=== PATIENT | female | born 1955 | race Caucasian/White ===

== ENCOUNTER → 2023-08-06 16:38 | Outpatient (REF) | payer MEDICARE, OTHER, SELFPAY | LOC: HWRAD 16:38 | PROVIDERS: ATTENDING PHYSICIAN Nurse Practitioner Adult Health | DX: R10.9 Unspecified abdominal pain (principal) | CPT/HCPCS: 74018 ==

== ENCOUNTER 2023-08-10 07:37 | Observation (INO) | payer MEDICARE, OTHER, SELFPAY ==
[2023-08-09 23:07] VITALS: BP 167/87
[2023-08-10] VITALS (9 sets, daily range): BP systolic 110–153; BP diastolic 55–92; BMI 16.1; BMI 16.4
[2023-08-10 00:56] LABS: % Basophils 0.3 % (0-2); % Immature Granulocytes 0.5 % (0-0.5); % Lymphocytes 12.4 % (20.5-51.1); % Monocytes 4.2 % (1.7-9.3); % Neutrophils 81.6 % (42.2-75.2); Absolute Basophils 0.1 10^3/uL (0-0.2); Absolute Eosinophils 0.2 10^3/uL (0-0.7); Absolute Immature Granulocytes 0.1 10^3/uL (0-0.05); Absolute Lymphocytes 2.2 10^3/uL (1.2-3.4); Absolute Monocytes 0.7 10^3/uL (0.1-0.6); Absolute Neutrophils 14.3 10^3/uL (1.4-6.5); Hemoglobin 13.7 g/dL (12.0-16.0); Mean Corp Hgb Conc. 32.6 g/dL (33.0-37.0); Mean Corpuscular Volume 92.1 fL (81.0-99.0); Mean Platelet Volume 8.9 fL (7.4-10.4); Nucleated Red Blood Cells % 0 %; Platelet Count 344 10^3/uL (130-400); Red Blood Cell Count 4.56 10^6/uL (4.20-5.40); Red Cell Dist. Width 13.1 % (11.5-14.5); White Blood Cell Count 17.5 10^3/uL (4.8-10.8)
[2023-08-10 00:58] LABS: Urine Albumin Trace (Neg - Trace); Urine Bilirubin 1+ (Negative); Urine Character Clear (Clear); Urine Color Yellow; Urine Glucose Negative (Negative); Urine Ketone 1+ (Negative); Urine Leukocyte Trace (Negative); Urine Nitrite Negative (Negative); Urine Occult Blood 1+ (Negative); Urine Specific Gravity 1.025 (<1.030); Urine Urobilinogen Negative (Neg - 1+)
[2023-08-10 01:10] LABS: ALT (SGPT) 17 U/L (0-35); AST (SGOT) 34 U/L (14-36); Albumin 4.3 g/dl (3.5-5.0); Alkaline Phosphatase 71 U/L (38-126); Blood Urea Nitrogen 13 mg/dl (7-17); Carbon Dioxide 28 mmol/L (22-30); Chloride 92 mmol/L (98-107); Estimated Creatinine Clearance 56 ml/min; Glucose 109 mg/dl (70-99); Lipase 109 U/L (23-300); Potassium 4.4 mmol/L (3.5-5.1); Sodium 127 mmol/L (135-145); Total Bilirubin 0.5 mg/dl (0.2-1.3); Total Protein 7.5 g/dl (6.3-8.2); eGFR > 60.00
[2023-08-10 01:30] LABS: Urine White Cell 0-2 /HPF (0-5)
--- NOTE | 2023-08-10 01:57 | ED.GENMED ---
History of Present Illness
<GREGG Dias - Last Filed: 08/11/23 17:59>
General
Chief Complaint: Abdominal Pain
Source: patient
Exam Limitations: none
Time Seen by Provider: 08/10/23 00:51
Travel History
Have you had any contact with someone who has COVID-19?: No
Do you have any symptoms of coronavirus? Fever > 100 degrees, chills, cough, shortness of breath, sore throat, loss of taste or smell, muscle aches, or headache?: No
History of Present Illness
History of Present Illness:
This is a 68 year old female that comes in by ambulance with c/o left sided abd pain. States that on July 18 she had severe abd pain. States that she was nauseated and sweaty. States that she couldn't get comfortable. State that she did vomit and
after she vomited she felt better. Then this past week she again started with abd pain on the left side and this lasted for 2 hours and she felt bloated. States that it went away. Then on Friday she was up all night with pain. Friday she went to
see the PCP and they did a urine and there was blood in the urine. States that she was sent for an X-ray and she was told that this was normal. States that she was told that she may have passed a kidney stone. ON Friday she called the PCP again as
she was still having pain but they decided to wait till after the weekend. Then Friday the pain got so bad that she just didn't know what to do. State that she has no appetite but she is having normal BM's. State that she is nauseated. Denies any
fever, chills, chest pain, SOB, vomiting, diarrhea, headache, dizziness, urinary burning.
Past History
<GREGG Dias - Last Filed: 08/11/23 17:59>
Past History
ED Past Medical History: HTN, Hypercholesterolemia, GA, Hypothyroidism and Other (Ulcer, PNA, Jose Manuel's thyroiditis, Anemia, Bronchiectasis )
ED Past Surgical History: Gynecological (Hysterectomy), Orthopedic (Left knee tissue overgrowth, Left wrist surgery) and Tonsilectomy
Social History
Tobacco: Former smoker
Alcohol: None
Personal:
Living: with family
Family History
Family History: Negative Diabetes, Hypertension or CAD
Review of Systems
<GREGG Dias - Last Filed: 08/11/23 17:59>
Review of Systems
All Other Systems: ROS reviewed and negative except as documented in HPI and ROS
Constitutional: Reports no symptoms; Denies fever or chills
EENT: Reports no symptoms
Respiratory: Reports no symptoms; Denies cough or trouble breathing
Cardiac: Reports no symptoms; Denies chest pain
ABD/GI: Reports abdominal pain and nausea; Denies vomiting or diarrhea
: Reports no symptoms; Denies dysuria, frequency or urgency
Musculoskeletal: Reports no symptoms
Skin: Reports no symptoms
Neurological: Reports no symptoms; Denies dizzy or headache
Psychiatric: Reports no symptoms
Phy Exam
<GREGG Dias - Last Filed: 08/11/23 17:59>
General Physical Exam
General Presentation: no apparent distress
General age: appears stated age
General Skin: warm and dry
General Habitus: elderly
General Mental: alert
General Hydration: appears well hydrated
ENT Exam
ENT Exam: TM's normal, pharynx normal and neck supple
Eye Exam
Eye Exam: EOMI
Cardiovascular Exam
Cardiovascular Exam: regular rate/rhythm, no edema, no murmur and normal peripheral pulses
Pulmonary Exam
Pulmonary Exam: lungs clear, no respiratory distress, no rales, chest non tender, no crackles, no rhonchi, no wheezing and no cough
Gastrointestinal Exam
Gastrointestinal Exam: normal bowel sounds, soft, no organomegaly, no pulsatile mass, non distended and tender (Left lower abd tenderness with palpation)
Musculoskeletal Exam
Musculoskeletal Exam: full ROM and no edema
Skin Exam
Skin Exam: normal color, warm/dry, no rash and no petechia
Psychiatric Exam
Psychiatric Exam: normal mood/affect
Course
<GREGG Dias - Last Filed: 08/11/23 17:59>
Orders/Labs/Results
Orders:
Orders
08/09/23 23:13
IV Insert/Care/Rem.- Treatment PRN
Complete Blood Count/With Diff Urgent
Comprehensive Metabolic Panel Urgent
Lipase Urgent
Urinalysis Reflex To Culture Urgent
Date Specimen was Collected: 08/09/23
Time Specimen was Collected: 23:14
08/10/23 00:49
Urine Microscopic Reflex Cult Urgent
08/10/23 01:56
CT Abd/pel W Iv And Oral Contr Urgent
Comment:
Reason For Exam: Left sided abd pain
0.9% Sodium Chloride 1000 ml [Nss] 1,000 ml IV BOLUS
Iohexol [Omnipaque] See Protocol PO NOW STA
08/10/23 02:03
Ondansetron Injectable [Zofran] 4 mg IV NOW STA
08/10/23 05:38
Chest [CR Chest - 2 Views ] Urgent
Comment:
Reason For Exam: cp
08/10/23 05:48
Piperacillin/Tazo 3.375 Gram [Zosyn] 3.375 gram in 50 ml IV NOW
08/10/23 Breakfast
Regular
At Your Request: Full Participation
Does patient need a safe tray?: No
08/10/23 06:51
Admit/Transfer Patient As Directed
Co-Sign Provider:
Level of Care: Observation services
Assign to:: Medical/Surgical
Physician / Group: hospitalist
Diagnosis: symptomatic liver cyst, abdominal pain
08/10/23 06:52
Code Status As Directed
Resuscitation Status: Full Code
08/10/23 07:40
HYDROmorphone [Dilaudid] 0.5 mg IV Q4HPRN PRN
08/10/23 07:45
Oxycodone [Roxicodone] 5 mg PO Q4HPRN PRN
08/10/23 11:03
Acetaminophen [Tylenol] 650 mg PO Q4HPRN PRN
Bisacodyl [Dulcolax] 10 mg RECTAL [id number] PRN
Cholecalciferol (Vitamin D3) [VITAMIN D3 (cholecalciferol)] 25 mcg PO DAILY
Docusate W/Senna [Senokot-S] 1 tablet PO BIDPRN PRN
Liothyronine [Cytomel] 5 microgram PO DAILY
Metoprolol Xl [Toprol Xl] 50 mg PO BID
Ondansetron Injectable [Zofran] 4 mg IV Q6HPRN PRN
Polyethylene Glycol Powder [Miralax] 17 grams PO DAILYPRN PRN
08/10/23 11:03
Consult Notification Routine
Specialty to Notify: Gastroenterology
Date consulting provider notified: 08/10/23
Time consulting provider notified: 14:36
Notified:: Provider
GASTROINTESTINAL CONSULT Routine
Consulting Provider: Davie Chinchilla
Was physician already notified: No
Reason for consult: abdominal pain c/w symptomatic liver cyst,
Activity As Directed
Activity Level: With Assistance
Vital Signs As Directed
Frequency: Per unit guidelines
DX Deep Vein Thrombosis Video Routine
08/10/23 18:00
Enoxaparin Sodium [Lovenox] 40 mg SC QPM
08/10/23 18:23
Sputum Culture [Respiratory Culture/Gram Stain] Urgent
JESUS MANUEL Source: Sputum
Specimen Description:
Date Specimen was Collected: 08/10/23
Time Specimen was Collected: 18:20
08/11/23 06:00
Levothyroxine [Synthroid] 100 mcg PO DAILY @ 0600
08/11/23 06:56
Basic Metabolic Panel IN AM
Complete Blood Count/No Diff IN AM
Abnormal Lab Results
08/10/23
00:49
WBC 17.5 H 10^3/uL
(4.8-10.8)
MCHC 32.6 L g/dL
(33.0-37.0)
Abs Immat Gran (auto) 0.1 H 10^3/uL
(0-0.05)
Absolute Neuts (auto) 14.3 H 10^3/uL
(1.4-6.5)
Absolute Monos (auto) 0.7 H 10^3/uL
(0.1-0.6)
Neutrophils % 81.6 H %
(42.2-75.2)
Lymphocytes % 12.4 L %
(20.5-51.1)
Sodium 127 L mmol/L
(135-145)
Chloride 92 L mmol/L
(98-107)
Creatinine 0.5 L mg/dL
(0.6-1.0)
Glucose 109 H mg/dl
(70-99)
Urine Ketones 1+ A
(Negative)
Ur Occult Blood Reflex 1+ A
(Negative)
Urine Bilirubin 1+ A
(Negative)
Leukocyte Esterase Rfl Trace A
(Negative)
Urine RBC 7-10 A /HPF
(0-2)
08/10/23 00:49
08/10/23 00:49
Leukocytosis, Hyponatremia, Chloride low. Glucose nonfasting. Urine negative for infection, positive for blood.
Vital Signs
Initial and Last Documented VS:
Initial Vital Signs
Temp Pulse Resp BP Pulse Ox
97.6 F 68 20 167/87 96
08/09/23 23:07 08/09/23 23:07 08/09/23 23:07 08/09/23 23:07 08/09/23 23:07
Last Documented Vital Signs
Temp Pulse Resp BP Pulse Ox
98.0 F 66 18 154/87 97
08/11/23 15:00 08/11/23 15:00 08/11/23 15:00 08/11/23 15:00 08/11/23 15:00
<Kristi Barrios DO - Last Filed: 08/10/23 06:01>
Orders/Labs/Results
Orders:
Orders
08/09/23 23:13
IV Insert/Care/Rem.- Treatment PRN
Complete Blood Count/With Diff Urgent
Comprehensive Metabolic Panel Urgent
Lipase Urgent
Urinalysis Reflex To Culture Urgent
Date Specimen was Collected: 08/09/23
Time Specimen was Collected: 23:14
08/10/23 00:49
Urine Microscopic Reflex Cult Urgent
08/10/23 01:56
CT Abd/pel W Iv And Oral Contr Urgent
Comment:
Reason For Exam: Left sided abd pain
0.9% Sodium Chloride 1000 ml [Nss] 1,000 ml IV BOLUS
Iohexol [Omnipaque] See Protocol PO NOW STA
08/10/23 02:03
Ondansetron Injectable [Zofran] 4 mg IV NOW STA
08/10/23 05:38
Chest [CR Chest - 2 Views ] Urgent
Comment:
Reason For Exam: cp
08/10/23 05:48
Piperacillin/Tazo 3.375 Gram [Zosyn] 3.375 gram in 50 ml IV NOW
08/10/23 Breakfast
Regular
At Your Request: Full Participation
Does patient need a safe tray?: No
08/10/23 06:51
Admit/Transfer Patient As Directed
Co-Sign Provider:
Level of Care: Observation services
Assign to:: Medical/Surgical
Physician / Group: hospitalist
Diagnosis: symptomatic liver cyst, abdominal pain
08/10/23 06:52
Code Status As Directed
Resuscitation Status: Full Code
08/10/23 07:40
HYDROmorphone [Dilaudid] 0.5 mg IV Q4HPRN PRN
08/10/23 07:45
Oxycodone [Roxicodone] 5 mg PO Q4HPRN PRN
08/10/23 11:03
Acetaminophen [Tylenol] 650 mg PO Q4HPRN PRN
Bisacodyl [Dulcolax] 10 mg RECTAL [id number] PRN
Cholecalciferol (Vitamin D3) [VITAMIN D3 (cholecalciferol)] 25 mcg PO DAILY
Docusate W/Senna [Senokot-S] 1 tablet PO BIDPRN PRN
Liothyronine [Cytomel] 5 microgram PO DAILY
Metoprolol Xl [Toprol Xl] 50 mg PO BID
Ondansetron Injectable [Zofran] 4 mg IV Q6HPRN PRN
Polyethylene Glycol Powder [Miralax] 17 grams PO DAILYPRN PRN
08/10/23 11:03
Consult Notification Routine
Specialty to Notify: Gastroenterology
Date consulting provider notified: 08/10/23
Time consulting provider notified: 14:36
Notified:: Provider
GASTROINTESTINAL CONSULT Routine
Consulting Provider: Davie Chinchilla
Was physician already notified: No
Reason for consult: abdominal pain c/w symptomatic liver cyst,
Activity As Directed
Activity Level: With Assistance
Vital Signs As Directed
Frequency: Per unit guidelines
DX Deep Vein Thrombosis Video Routine
08/10/23 18:00
Enoxaparin Sodium [Lovenox] 40 mg SC QPM
08/10/23 18:23
Sputum Culture [Respiratory Culture/Gram Stain] Urgent
JESUS MANUEL Source: Sputum
Specimen Description:
Date Specimen was Collected: 08/10/23
Time Specimen was Collected: 18:20
08/11/23 06:00
Levothyroxine [Synthroid] 100 mcg PO DAILY @ 0600
08/11/23 06:56
Basic Metabolic Panel IN AM
Complete Blood Count/No Diff IN AM
Abnormal Lab Results
08/10/23
00:49
WBC 17.5 H 10^3/uL
(4.8-10.8)
MCHC 32.6 L g/dL
(33.0-37.0)
Abs Immat Gran (auto) 0.1 H 10^3/uL
(0-0.05)
Absolute Neuts (auto) 14.3 H 10^3/uL
(1.4-6.5)
Absolute Monos (auto) 0.7 H 10^3/uL
(0.1-0.6)
Neutrophils % 81.6 H %
(42.2-75.2)
Lymphocytes % 12.4 L %
(20.5-51.1)
Sodium 127 L mmol/L
(135-145)
Chloride 92 L mmol/L
(98-107)
Creatinine 0.5 L mg/dL
(0.6-1.0)
Glucose 109 H mg/dl
(70-99)
Urine Ketones 1+ A
(Negative)
Ur Occult Blood Reflex 1+ A
(Negative)
Urine Bilirubin 1+ A
(Negative)
Leukocyte Esterase Rfl Trace A
(Negative)
Urine RBC 7-10 A /HPF
(0-2)
08/10/23 00:49
08/10/23 00:49
Vital Signs
Initial and Last Documented VS:
Initial Vital Signs
Temp Pulse Resp BP Pulse Ox
97.6 F 68 20 167/87 96
08/09/23 23:07 08/09/23 23:07 08/09/23 23:07 08/09/23 23:07 08/09/23 23:07
Last Documented Vital Signs
Temp Pulse Resp BP Pulse Ox
98.0 F 66 18 154/87 97
08/11/23 15:00 08/11/23 15:00 08/11/23 15:00 08/11/23 15:00 08/11/23 15:00
<GREGG Dias - Last Filed: 08/11/23 17:59>
MDM/Problems Addressed
Differential Diagnosis Includes:
Diverticulitis, Renal calculus,
MDM/Problems Addressed:
This is a 68 year old female that comes in with c/o left sided abd pain. States that this started on July 18 and then went away. Then this week it returned and today the pain was worse. States that she was nauseated and did not have an appetite.
States that she did have a BM
Chronic conditions affecting care:
NA
Acute Exacerbation and/or Progression of Chronic Illness:
NA
<GREGG Dias - Last Filed: 08/11/23 17:59>
*Radiology
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 Punctate left lower pole renal calculus. ultiple hepatic cyst with a large cyst arising from the left hepatic lobe that is stable from
the previous CT urogram. Mild abdominopelvic ascites. Colonic diverticulosis. Infectious or inflammator) and other (CT cont inflammatory bronchiolitis throughout the bilateral lung bases. )
*Pulse Oximetry
Patient hypoxic: no
*EKG
Interpreted by ED Provider?: NA
Rate: EKG- N/A
*Mail Rider Interpretation
Rate: Mail Rider- N/A
*Critical Care Note
Total Time (30-74mins, 75-104mins- exclusive of procedures): Not Applicable
ED Attending Note
<GRGEG Dias - Last Filed: 08/11/23 17:59>
-
Portions of this chart may have been created with voice recognition software.� Occasional wrong word or��sound alike� substitutions may have occurred due to the inherent limitations of voice recognition software.
<Kristi Barrios DO - Last Filed: 08/10/23 06:01>
ED Attending Note
Patient seen and examined by attending physician: Yes
I performed the substantive portion of visit, reviewed & personally made and approve the management plan that is documented in note by myself or SHARON.: Yes
I performed a history and physical exam of patient and discussed management with resident, I reviewed resident's note and agree with documented findings and plan of care.: Yes
ED Attending Note:
This is a 68-year-old woman with history of hypothyroidism, hypertension, bronchiectasis, known hepatic cyst and prior history of kidney stones.
She complains of 1 week history of left upper quadrant to left mid abdominal pain, progressively worse over the past week. Evaluated by her PCP on Friday and urinalysis reportedly unremarkable.
She does note somewhat chronic mild cough which she attributes to her bronchiectasis but last night cough was productive of scantly blood-tinged sputum and again this morning after returning from CT. She has not had a fever nor chills. She admits
to nausea but no vomiting.
68-year-old woman, thin build, mildly protuberant abdomen.
Lungs with fine rales bibasilar, no respiratory distress.
Abdomen is soft with moderate tenderness left upper quadrant, left mid abdomen.
Labs are remarkable for moderately elevated white blood cell count 17.5. Patient states routine labs within the past week were unremarkable save for mild/chronic hyponatremia.
She is noted to have mild hyponatremia, similar to previous.
CAT scan shows a large cyst arising from left hepatic lobe�this corresponds with area of abdominal pain. She is also noted to have moderate ascites and bilateral lower lobe patchy opacities suspicious for pneumonia.
With increasing cough, hemoptysis there is concern for pneumonic process and significant tenderness over hepatic cyst concerning for inflamed/infected cyst.
Will initiate IV antibiotics and admit to hospitalist service.
Discharge Plan
Departure
Patient Disposition: Admit
Date of Disposition: 08/10/23
Time of Disposition: 05:44
Admit to doctor: Disha
Presentation/result/management discussed w/ accepting MD/DO: Hospitalist
Condition: Fair
Discharge Problem:
inflamed hepatic cyst, Cough with hemoptysis, Leukocytosis
Interventions
Interventions:
*Risk Screen - Suicide Last Done: 08/09/23 23:07
*General Assessment Last Done: 08/09/23 23:07
*Neglect/Abuse Screening Last Done: 08/09/23 23:07
ED- Fall Risk Assessment Last Done: 08/09/23 23:07
*ED COVID-19 Vaccine History Last Done: 08/09/23 23:07
*Nursing Disposition Last Done: 08/10/23 13:21
UQ-Crgsjf-Limcdducnf Assessment Last Done: 08/10/23 09:00
ED-Female Genitourinary Assessment Last Done: 08/10/23 09:00
Discharge Date and Time
Discharge Date/Time: 08/10/23 13:21
[2023-08-10] MEDS: NSS 1000 IV (02:04)
[2023-08-10] MEDS: OMNIPAQUE 960 ML PO (02:04)
[2023-08-10] MEDS: ZOSYN 50 IV (05:53)
--- NOTE | 2023-08-10 06:07 | HPS.HSE ---
Family Physician
-
Family Physician: Cindi Peterson
Chief Complaint
-
Abdominal pain and cough productive of scant hemoptysis
History of Present Illness
This is a 68-year-old female with past medical history significant for rheumatoid arthritis, hypertension, bronchiectasis, hyperlipidemia who presents to the emergency department with several days of intermittent left-sided abdominal pain radiating
to the groin.
Patient reports she has a prior history of nephrolithiasis. About 20 weeks ago she developed severe left-sided abdominal pain that was radiating to her groin that felt like she had a kidney stone again. She did see a physician and few days later
who did a urine test and found that she has hematuria. Symptoms was consistent with kidney stone and she was pending a imaging study. However today she reported worsening of the abdominal pain especially in association with cough that was
productive of scant hemoptysis. She denies any radiation of the pain besides going to the groin. She denies dysuria. She denies flank pain or back pain. She denies any chest pain. She does not have any shortness of breath orthopnea or PND. She
denies having fevers or chills.
Patient is known to have a rather large left about the closest which she is aware of. However is not clear that he has been any follow-up.
On arrival in the emergency department she was afebrile, blood pressure was 148/90 with a pulse of 72. Oxygen saturation was 91% on room air. UA with RBCs but otherwise unremarkable. She had WBC count of 17,000 with rest of the CBC being normal.
Chemistries were normal except for a sodium of 127 which is unchanged from prior. LFTs and lipase within normal limits. CT of the abdomen pelvis shows a rather large cystic lesion in the left hepatic lobe which is unchanged from prior. History
that abscess cannot be ruled out. She also has a moderate ascites.
Medical History
Past Medical History
Past Medical History: Reports Hypercholesterolemia and Hypothyroidism
Additional Past Medical History:
RA
Bronchiectasis
Past Surgical History: Reports None
Social History
Tobacco: Non-smoker
Alcohol: None
Drug: None
Family History
Family History: Not pertinent
Allergies / Home Medications
Allergies reflects when Allergies were last updated in Scan.
Home Medications with original date entered in Scan
Allergy/Medication List:
Allergies
Allergy/AdvReac Type Severity Reaction Status Date / Time
Antihistamines - Alkylamine Allergy Swelling Verified 11/17/20 12:46
ibuprofen Allergy hx of Verified 11/17/20 12:46
ulcers
Home Medications
cholecalciferol (vitamin D3) 25 mcg (1,000 unit) tablet 1,000 units PO DAILY
levothyroxine 100 mcg tablet 100 mcg PO daily
liothyronine 5 mcg po daily
metoprolol succinate 50 mg tablet PO BID
Review of Systems
-
Constitutional: Reports No Symptoms
EENT: Reports No Symptoms
Respiratory: Reports Cough and Hemoptysis
Cardiac: Reports No Symptoms
Abdomen/GI: Reports Abdominal Pain
: Reports No Symptoms
Musculoskeletal: Reports No Symptoms
Skin: Reports No Symptoms
Neurological: Reports No Symptoms
Endocrine: Reports No Symptoms
Hematologic/Lymphatic: Reports No Symptoms
Psych: Reports No Symptoms
Physical Exam
Vital Signs
Vital Signs
Temp Pulse Resp BP Pulse Ox
97.6 F 72 18 148/92 97
08/09/23 23:07 08/10/23 04:14 08/10/23 04:14 08/10/23 04:14 08/10/23 04:14
Physical Exam
General: Well Developed and No Apparent Distress
HEENT: NormoCephalic, Anicteric, Moist mucous membranes, Atraumatic and PERRLA
Respiratory: Clear
Cardiac: S1/S2 and Regular Rhythm
Breast: Deferred by me
GI: Soft, Tender, Distended and Other (rounded left periumbilical and lower quadrant mass)
Rectal: Deferred by Provider
Genito-urinary: Deferred by me and No costovertebral tender
Musculoskeletal: No Clubbing, No Cyanosis and No Edema
Skin: Warm
Neuro: AO x 3
Hematologic/Lymphatic: No Lymphadenopathy
Psych: Calm
Laboratory Results
-
08/10/23 00:49
08/10/23 00:49
Laboratory Results
Total Bilirubin 0.5 mg/dl (0.2-1.3) 08/10/23:49
AST 34 U/L (14-36) 08/10/23:49
ALT 17 U/L (0-35) 08/10/23:49
Alkaline Phosphatase 71 U/L (38-126) 08/10/23:49
Lipase 109 U/L (23-300) 08/10/23 00:49
Data Reviewed
-
Diagnostic Radiology: Image Personally Visualized and interpreted
CT Scan: Report Reviewed by me
Lab Data: Labs Reviewed by me
Old Records: Reviewed
Impression/Plan
-
IMPRESSION:
PLAN:
1. Abdominal pain - Patient with about 2.5 weeks of intermittent abdominal pain. She refers to an area c/w location of the left hepatic lobe large cyst and radiating to the groin/hip. Has microscopic hematuria today. The CT AP with contrast shows
persistent and stable size of the cyst with moderate ascites. No mention of nephrolithiasis on initial read. She reportedly had an xray a week ago without stones. Normal LFTs and lipase. No rebound or guarding on exam. The pain does not appear
to be peritonitis nor intraluminal. Differential is either from symptomatic liver cyst, ascites or possibly nephrolithiasis. CT scan also mentions patchy bibasilar opacities. Oxygenation is normal.
- admit to med/surg obs
- f/u on final read of CT to rule out nephrolithiasis causing pain but hematuria could be from a passed stone.
- GI consult for management of painful large liver cyst if no other obvious source of pain
2. Cough/Hemopytsis - coughing and scant hemoptysis today with h/o bronchiectasis, No cough while discussing in the room with her. Lungs sounds clear. No fever or chills. S/P abx Zosyn in ED.
- chest xray with trace pleural effusion but no obvious consolidation
- hold abx for now
- monitor cough
3. Hyponatremia - Chronic low sodium 2/2 hypothyroidism. Baseline in 2021 and 2022 was 126 - 127, unchanged from current.
- patient cannot tolerate salt
- moderate fluid restricition as tolerated
4. Hypothyroid - h/o barby thyroiditis and T3 ressitance
- levothyroxine 100 mcg w/ 5mcg of liothyronine daily
[2023-08-10] MEDS: DILAUDID 0.5 MG IV (07:49)
--- NOTE | 2023-08-10 08:54 | EDRN ---
This RN TT'd Dr. Mendez presently assigned to pt that med rec is now completed since it was not completed prior to admission orders.
--- NOTE | 2023-08-10 08:55 | EDRN ---
Dr. Mendez TT'd he will review later.
--- NOTE | 2023-08-10 09:17 | EDRN ---
Pt having nausea at this time.
--- NOTE | 2023-08-10 09:24 | EDRN ---
This RN TT'd Dr. Mendez that pt having nausea at this time.
--- NOTE | 2023-08-10 09:37 | EDRN ---
Pt no longer having any nausea at this time. Dr. Mendez TT'd back that he will provide a prn order for zofran in case pt gets nausea again.
--- NOTE | 2023-08-10 10:29 | W.PN.HOSP.TC ---
Today's Communication/Plan
-
Pain control. GI consult pending.
Assessment / Plan
Assessment / Plan
Physical exam:
General: Well Developed, Well Nourished and No Apparent Distress
HEENT: Normocephalic, Atraumatic and Moist Mucous Membranes
Respiratory: Clear to Auscultation; Negative Wheezes, Rales or Rhonchi
Cardiac: Regular Rhythm and S1/S2
GI: Soft, LLQ Tender and Nondistended
Musculoskeletal: No Clubbing, No Cyanosis and No Edema
Neuro: Awake, Alert and Oriented
Psych: Calm
A/P:
1. Abdominal pain - Patient with about 2.5 weeks of intermittent abdominal pain. Has microscopic hematuria. The CT AP with contrast shows persistent and stable size of the cyst with moderate ascites. 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
the left kidney and punctate left lower pole renal calculus and no hydronephrosis. Mild abdominal pelvic ascites. Colonic diverticulosis. She reportedly had an xray a week ago without stones. Normal LFTs and lipase. No rebound or guarding on
exam. The pain does not appear to be peritonitis nor intraluminal. CT scan also mentions patchy bibasilar opacities. Oxygenation is normal.
- admit to med/surg obs
- GI consult for management of painful large liver cyst if no other obvious source of pain
- Symptomatic pain control with pain medications as needed
- Antiemetics as needed
2. Cough/Hemopytsis - coughing and scant hemoptysis today with h/o bronchiectasis, No cough while discussing in the room with her. Lungs sounds clear. No fever or chills. S/P abx Zosyn in ED.
- chest xray with trace pleural effusion but no obvious consolidation. CT scan mentions bronchiolitis on bilateral lung bases.
- hold abx for now
- monitor cough--> she does have productive cough but no worsening than baseline. Sputum culture ordered. Obtain blood cultures. Remains afebrile. Follow-up trend of WBC.
3. Hyponatremia - Chronic low sodium 2/2 hypothyroidism. Baseline in 2021 and 2022 was 126 - 127, unchanged from current.
- patient cannot tolerate salt
-Continue fluid restriction
-Trend sodium in a.m.
4. Hypothyroid - h/o Jose Manuel thyroiditis and T3 resistance
- levothyroxine 100 mcg w/ 5mcg of liothyronine daily
-Repeat TFTs in 6 weeks
5. Hypertension
Continue metoprolol succinate 50 mg p.o. twice a day
DVT prophylaxis-Lovenox SQ
CODE STATUS-full code
Anticipated Discharge: 24 - 48 hours
Subjective/Interval History
-
Date of Service: August 10, 2023
Patient complains of left lower quadrant abdominal pain, intermittent in nature. No hematuria. No bright blood per rectum, hematochezia, or melena. No chest pain or shortness of breath. Afebrile
Objective Data
-
Labs:
Laboratory Results
08/10/23
00:49
WBC 17.5 H
Hgb 13.7
Hct 42.0
Plt Count 344
Sodium 127 L
Potassium 4.4
Chloride 92 L
Carbon Dioxide 28
BUN 13
Creatinine 0.5 L
Glucose 109 H
Calcium 10.0
Total Bilirubin 0.5
AST 34
ALT 17
Alkaline Phosphatase 71
Vital Signs:
Vital Signs
Temp Pulse Resp BP Pulse Ox
97.9 F 69 16 110/60 97
08/10/23 09:00 08/10/23 09:00 08/10/23 09:00 08/10/23 09:00 08/10/23 09:00
Review of Systems
-
All other systems: Reviewed and negative
[2023-08-10] MEDS: TOPROL XL 50 MG PO ×2 (11:55→20:33)
[2023-08-10] MEDS: VITAMIN D3 (cholecalciferol) 25 MCG PO (11:55)
[2023-08-10] MEDS: CYTOMEL 5 MICROGRAM PO (11:55)
[2023-08-10] MEDS: LOVENOX 40 MG SC (18:02)
[2023-08-11] MEDS: SYNTHROID 100 MCG PO (05:49)
[2023-08-11 07:00] VITALS: BP 147/81
[2023-08-11 07:24] LABS: Hematocrit 33.3 % (37.0-47.0); Hemoglobin 11.2 g/dL (12.0-16.0); Mean Corp Hgb Conc. 33.6 g/dL (33.0-37.0); Mean Corpuscular Hgb 29.9 pg (27.0-31.0); Platelet Count 276 10^3/uL (130-400); Red Blood Cell Count 3.74 10^6/uL (4.20-5.40); Red Cell Dist. Width 13.4 % (11.5-14.5)
[2023-08-11 08:14] LABS: Blood Urea Nitrogen 8 mg/dl (7-17); Calcium 9.2 mg/dl (8.4-10.2); Carbon Dioxide 28 mmol/L (22-30); Chloride 90 mmol/L (98-107); Estimated Creatinine Clearance 57 ml/min; Glucose 80 mg/dl (70-99); Potassium 4.4 mmol/L (3.5-5.1); Sodium 128 mmol/L (135-145); eGFR > 60.00
[2023-08-11] MEDS: CYTOMEL 5 MICROGRAM PO (08:14)
[2023-08-11] MEDS: VITAMIN D3 (cholecalciferol) 25 MCG PO (08:14)
[2023-08-11] MEDS: TOPROL XL 50 MG PO ×2 (08:14→20:18)
--- NOTE | 2023-08-11 09:10 | CON.GI ---
Addendum entered and electronically signed by Davie Chinchilla MD 08/11/23 14:51:
I saw and examined the patient.
The ECCLESIASTICAL WORKER's note was reviewed and I agree with the note.
Problem list:
-LLQ abdominal pain radiating to the groin- resolved now
-Hepatic cyst, 8.5cm stable from prior imaging dating back to 2020
-hemoptysis
-hematuria, hx kidney stones
plan
Currently patient is asymptomatic. Abdominal pain resolved . tolerating diet. No further GI workup as inpatient
Advised to follow-up with GI as outpatient for liver cyst-recommend repeat imaging with ultrasound abdomen
GI will sign off
Original Note:
Consultation
-
Date/Time Consultation Requested: 08/10/2023 @ 11:03
Date/Time Consultation Performed: 08/11/23 @ 09:30
Requesting Provider: Dr. Gauthier
Performing Provider: GREGG Liz; Dr. Chinchilla
Reason for Consultation: abdominal pain c/w symptomatic liver cyst,
Medical History
Chief Complaint / HPI
Chief Complaint: Abdominal pain, productive cough, hemoptysis
History of Present Illness:
The patient is a 68-year-old female with a past medical history significant for hypertension, Jose Manuel's thyroiditis with T3 resistance, bronchiectasis, ?PUD/GERD, RA (not on medications), kidney stones, who presented to the emergency room with
complaints of abdominal pain with productive cough with hemoptysis. We are being asked to evaluate for abdominal pain. The patient reports that she has had an intermittent cough chronically since having COVID in 2019. She notes that she was
diagnosed with bronchiectasis and does follow with a machine cell tuber routinely. Over the past 3 to 4 weeks she notes that she has had an increased cough with increased mucus production. She notes prior to admission she did have a small amount of
bright red blood brought up with coughing but otherwise denies any significant signs of bleeding. About 2 weeks ago she developed an intermittent left-sided abdominal pain which is a periumbilical. She notes that the discomfort radiates down into
her groin and to her lower back on the left side. She is unable to identify any triggers but does have a history of kidney stones and this did feel somewhat similar. She did see her PCP and underwent a urine test which did show a small amount of
blood but no sign of infection. She also underwent an abdominal x-ray on 08/05 which showed no signs of obstruction or obvious stones. She notes that she continued the discomfort despite use of Tylenol to the point where she was having difficulty
with ADLs as she cannot walk around without significant pain. She also admits to sweats and 1 episode of nausea with vomiting which has since resolved. She notes that the discomfort in the left lower quadrant is associated with a bulge that can be
hard to touch. This will come and go and she is unable to identify any obvious triggers. She denies any constipation or diarrhea, and moves her bowels regularly on a daily basis. She denies any fevers or chills. She otherwise denies any
unintentional weight loss, loss of appetite, reflux, dysphagia, melena, hematochezia, or hematemesis. She takes Pepcid complete for reported history of PUD but has never had an EGD. She denies any further hemoptysis but will cough if lying flat.
She denies any dyspnea on exertion. She denies any family history of GI cancers or disorders. She has never had a colonoscopy but does do Cologuard regularly, with her last one done in the fall 2021 which was negative. She notes that she was
planning to see a GI specialist outpatient but was unable to schedule. Upon ER evaluation, she underwent a CT of the abdomen pelvis with IV and oral contrast which reportedly showed ' chronic infarct at the superior pole of the left kidney, punctate
left lower pole renal calculi, multiple hepatic cysts with the largest measuring 8.5 cm, mild abdominal pelvic ascites, colonic diverticulosis, and infectious or inflammatory bronchiolitis throughout the bilateral lung bases.' Routine labs on
admission did show a WBC 17.5, sodium 127, potassium 4.4, BUN 13, creatinine 0.5, lipase 109, and normal LFTs. She was placed on a regular diet, as needed pain medicine, and admitted for further evaluation by GI.
Past Medical History
Past Medical History: HTN, Hypercholesterolemia, Hypothyroidism (Jose Manuel's thyroiditis with T3 resistance) and Other (Kidney stones)
Past Surgical History: Gynecological (CHRISTOPHER), Orthopedic (left knee, left wrist repair), Tonsilectomy and Other (MOHs procedure)
Social History
Tobacco: Non-Smoker
Alcohol: None
Drug: None
Family History
Family History: Reviewed & Not Pertinent
Allergies / Home Medications
Allergy/AdvReac Type Severity Reaction Status Date / Time
Antihistamines - Alkylamine Allergy Swelling Verified 11/17/20 12:46
ibuprofen Allergy hx of Verified 11/17/20 12:46
ulcers
�Medication �Instructions �Recorded
levothyroxine 100 mcg tablet 100 mcg PO DAILY Thyroid 10/27/19
acetaminophen 500 mg tablet 1,000 mg PO DAILYPRN PRN mild pain 08/10/23
(Tylenol Extra Strength)
camphor-menthol 0.2 %-3.5 % 1 applic topical DAILY PRN abd 08/10/23
topical gel region
cholecalciferol (vitamin D3) 25 25 mcg PO DAILY Supplement 08/10/23
mcg (1,000 unit) tablet
famotidine-Ca carb-mag hydrox 10 1 tab PO HS Gastrointestinal Issue 08/10/23
mg-800 mg-165 mg chewable tablet
(Pepcid Complete)
liothyronine 5 mcg tablet 5 mcg PO DAILY Thyroid 08/10/23
metoprolol succinate 50 mg 50 mg PO BID Blood Pressure 08/10/23
tablet,extended release 24 hr
peg 400-propylene glycol (PF) 0.4 1 drp BOTH EYES DAILYPRN PRN dry 08/10/23
%-0.3 % eye drops in a dropperette eyes
(Systane (PF))
Review of Systems
-
History Source: Patient
Constitutional: Reports Chills
EENT: Reports No Symptoms
Respiratory: Reports Cough and Hemoptysis
Cardiac: Reports No Symptoms
Abdomen/GI: Reports Abdominal Pain (Left lower quadrant), Nausea and Vomiting
: Reports No Symptoms
Musculoskeletal: Reports No Symptoms
Skin: Reports No Symptoms
Neurological: Reports No Symptoms
Vital Signs
Temp Pulse Resp BP Pulse Ox
98.0 F 72 18 147/81 91
08/11/23 07:00 08/11/23 07:00 08/11/23 07:00 08/11/23 07:00 08/11/23 07:00
Physical Exam
Exam
General: Well Developed and Other (Very thin appearing female in no acute distress)
HEENT: Normocephalic, Anicteric and Atraumatic
Respiratory: Clear
Cardiac: Regular Rhythm
Breast: Deferred by me
GI: Soft, Non Tender, Non Distended, Normal Bowel Sounds, Flat and Other (No palpable masses)
Rectal: Deferred by Provider
Musculoskeletal: No Edema
Skin: Warm and Dry
Neuro: Awake and Alert
Psych: Calm
Results
WBC 7.0 10^3/uL (4.8-10.8) 08/11/23 06:56
Hgb 11.2 g/dL (12.0-16.0) L 08/11/23 06:56
Hct 33.3 % (37.0-47.0) L 08/11/23 06:56
MCV 89.0 fL (81.0-99.0) 08/11/23 06:56
Plt Count 276 10^3/uL (130-400) 08/11/23 06:56
Absolute Neuts (auto) 14.3 10^3/uL (1.4-6.5) H 08/10/23 00:49
Sodium 128 mmol/L (135-145) L 08/11/23 06:56
Potassium 4.4 mmol/L (3.5-5.1) 08/11/23 06:56
Chloride 90 mmol/L (98-107) L 08/11/23 06:56
Carbon Dioxide 28 mmol/L (22-30) 08/11/23 06:56
BUN 8 mg/dl (7-17) 08/11/23 06:56
Creatinine 0.5 mg/dL (0.6-1.0) L 08/11/23 06:56
Calcium 9.2 mg/dl (8.4-10.2) 08/11/23 06:56
Total Bilirubin 0.5 mg/dl (0.2-1.3) 08/10/23 00:49
AST 34 U/L (14-36) 08/10/23 00:49
ALT 17 U/L (0-35) 08/10/23 00:49
Alkaline Phosphatase 71 U/L (38-126) 08/10/23 00:49
Lipase 109 U/L (23-300) 08/10/23 00:49
Diagnostic Image Results:
08/10/23 CT A/P w/ IV and oral contrast: IMPRESSION:
'1. 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
2. Punctate left lower pole renal calculus.
3. Multiple hepatic cysts with a large cyst arising from the left hepatic lobe that is stable from the previous CT urogram.
4. Mild abdominopelvic ascites.
5. Colonic diverticulosis.
6. Infectious or inflammatory bronchiolitis throughout the bilateral lung bases.'
Prior GI Procedures:
EGD: None
Colonoscopy: None
Assessment / Plan
-
The patient is a 68-year-old female with a past medical history significant for hypertension, Jose Manuel's thyroiditis with T3 resistance, bronchiectasis, ?PUD/GERD, RA (not on medications), kidney stones, who presented to the emergency room with
complaints of abdominal pain with productive cough with hemoptysis. We are being asked to evaluate for abdominal pain. She presents with a multitude of complaints including left lower quadrant abdominal pain, hemoptysis, which has been ongoing for
the past several weeks. She notes intermittent palpation of a hard lump in her left lower quadrant with unknown trigger, although appears consistent with coughing suggesting possible hernia although not felt on exam. CT imaging showing no acute
finding. There was mild abdomopelvic ascites present. LFTs are normal. The large hepatic cyst present has been seen for several years on imaging and has been stable in size. No evidence for diverticulitis on CT scan. She feels significant
improvement today. Leukocytosis has resolved.
Problem list:
-LLQ abdominal pain radiating to the groin
-Hepatic cyst, 8.5cm stable from prior imaging dating back to 2020
-hemoptysis
-hematuria, hx kidney stones
-leukocytosis, resolved
-chronic hyponatremia
-?hx PUD remotely
Other pertinent medical hx:
-Jose Manuel's thyroiditis, T3 resistance
-Chronic bronchiectasis
-Kidney stones
-Hypertension
Recommendations:
-Etiology of abdominal pain unclear, possibly urological in nature (known hx kidney stones) v musculoskeletal 2/2 coughing v vascular etiology with CT findings showing chronic splenic infarct v other.
---Liver cyst appear stable in size for several years. I do not feel this is causing her pain given where her pain is located. There is report of mild ascites on CT but no evident ascites on exam. No diverticulitis.
-To consider further imaging such as MRI of the abdomen and pelvis to further characterize the liver cysts along with the pelvic area where her main complaints of pain are, but likely can be done outpatient given that her pain has resolved. Will
review with Dr. Chinchilla.
-There is presence of mild ascites although not evident on exam.
-She can use tylenol as needed
-She should use splinting with coughing to see if this helps
-Follow-up with pulmonary as directed regarding hemoptysis which also appears to have resolved. She is not anemic (drop may be dilutional)
-I did advise that she should undergo outpatient GI evaluation and consider colonoscopy given she has never had one in the past.
-Continue diet as tolerated.
-If she remains without pain can likely be discharged from GI standpoint.
Data Reviewed
-
CT Scan: Report Reviewed by me
-
-
Thank you for consultation and allowing me to participate in the patient's care. Please call the [facility] GI physician during the after hours with any questions or concerns.
--- NOTE | 2023-08-11 12:24 | W.PN.HOSP.TC ---
Today's Communication/Plan
-
see A/P
Assessment / Plan
Assessment / Plan
CT AP:
1. 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
2. Punctate left lower pole renal calculus.
3. Multiple hepatic cysts with a large cyst arising from the left hepatic lobe that is stable from the previous CT urogram.
4. Mild abdominopelvic ascites.
5. Colonic diverticulosis.
6. Infectious or inflammatory bronchiolitis throughout the bilateral lung bases.
A/P:
# intermittent Abdominal pain, ongoing for 2.5 weeks, likely due to symptomatic hepatic cyst
CT AP with contrast report above
Normal LFTs and lipase level.
GI consulted for management of painful large liver cyst
Pain control with IV Dilaudid PRN, PO oxycodone PRN
Antiemetics as needed
# Cough with scant Hemoptysis
# h/o bronchiectasis
Pt has stable respiratory status
S/P abx Zosyn in ED.
chest xray with trace pleural effusion but no obvious consolidation. CT scan mentions bronchiolitis on bilateral lung bases.
hold further abx for now, suspect leucocytosis was reactive
Follow sputum culture and blood culture results
# Chronic Hyponatremia
Continue fluid restriction
Sodium level at 128 today
Follow sodium level
# Hypothyroidism
# h/o Jose Manuel thyroiditis and T3 resistance
Cont [employer] levothyroxine 100 mcg w/ 5mcg of liothyronine daily
Repeat TFTs in 6 weeks
# Hypertension
Continue metoprolol succinate 50 mg p.o. twice a day
BP stable
# Cachexia with severe protein caloric malnutrition
BMI 16
DVT prophylaxis-Lovenox SQ
CODE STATUS-full code
Anticipated Discharge: 24 - 48 hours
Subjective/Interval History
-
Date of Service: August 11, 2023
Objective Data
-
Labs:
Laboratory Results
08/11/23
06:56
WBC 7.0
Hgb 11.2 L
Hct 33.3 L
Plt Count 276
Sodium 128 L
Potassium 4.4
Chloride 90 L
Carbon Dioxide 28
BUN 8
Creatinine 0.5 L
Glucose 80
Calcium 9.2
Vital Signs:
Vital Signs
Temp Pulse Resp BP Pulse Ox
36.7 C 72 18 147/81 91
08/11/23 07:00 08/11/23 07:00 08/11/23 07:00 08/11/23 07:00 08/11/23 07:00
I&O
08/10/23 08/11/23 08/12/23
06:59 06:59 06:59
Intake Total 730 / 730
Balance 730 / 730
Review of Systems
-
All other systems: Reviewed and negative
Respiratory: Reports Cough (chronic); Denies Trouble Breathing
Abdomen/GI: Reports Abdominal Pain (appear to have resolved )
Physical Exam
-
General: Well Developed, No Apparent Distress, Comfortable, Conversant and Cachectic
HEENT: Normocephalic, Atraumatic, Nose Appears Normal and Ears Appear Normal; Negative Oxygen
Respiratory: Clear to Auscultation and Non Labored Respirations; Negative Accessory Resp Muscle Use
Cardiac: Regular Rhythm and S1/S2
GI: Soft, Nontender, Nondistended, Normal Bowel Sounds and Other (scaphoid abdomen)
Skin: Warm and Dry
Neuro: Awake, Alert, Oriented and AO x 3
Psych: Calm and Intact Judgement/Insight
Data Reviewed
-
CT Scan: Report Reviewed by me
Labs: Labs Reviewed by me
[2023-08-11 15:00] VITALS: BP 154/87
[2023-08-11] MEDS: LOVENOX 30 MG SC (18:03)
[2023-08-11] MEDS: TYLENOL 650 MG PO (20:18)
[2023-08-11 23:00] VITALS: BP 143/76
[2023-08-12] MEDS: SYNTHROID 100 MCG PO (05:53)
[2023-08-12 07:00] VITALS: BP 145/79
[2023-08-12 07:09] LABS: Hematocrit 32.6 % (37.0-47.0); Hemoglobin 10.7 g/dL (12.0-16.0); Mean Corp Hgb Conc. 32.8 g/dL (33.0-37.0); Mean Corpuscular Hgb 30.1 pg (27.0-31.0); Mean Corpuscular Volume 91.6 fL (81.0-99.0); Mean Platelet Volume 8.9 fL (7.4-10.4); Platelet Count 249 10^3/uL (130-400); Red Blood Cell Count 3.56 10^6/uL (4.20-5.40); Red Cell Dist. Width 13.1 % (11.5-14.5); White Blood Cell Count 6.6 10^3/uL (4.8-10.8)
[2023-08-12 07:36] LABS: Blood Urea Nitrogen 6 mg/dl (7-17); Calcium 9.1 mg/dl (8.4-10.2); Carbon Dioxide 31 mmol/L (22-30); Chloride 92 mmol/L (98-107); Estimated Creatinine Clearance 57 ml/min; Glucose 91 mg/dl (70-99); Magnesium 1.7 mg/dl (1.6-2.3); Potassium 4.9 mmol/L (3.5-5.1); Sodium 128 mmol/L (135-145); eGFR > 60.00
[2023-08-12] MEDS: CYTOMEL 5 MICROGRAM PO (07:47)
[2023-08-12] MEDS: VITAMIN D3 (cholecalciferol) 25 MCG PO (07:47)
[2023-08-12] MEDS: TOPROL XL 50 MG PO (07:49)
[2023-08-12] MEDS: TYLENOL 650 MG PO (10:24)
--- NOTE | 2023-08-12 11:06 | W.PN.HOSP.TC ---
Addendum entered and electronically signed by Kami Henriquez MD 08/12/23 12:52:
total DC time 35 min
Original Note:
Today's Communication/Plan
-
DC home today
Assessment / Plan
Assessment / Plan
CT AP:
1. 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
2. Punctate left lower pole renal calculus.
3. Multiple hepatic cysts with a large cyst arising from the left hepatic lobe that is stable from the previous CT urogram.
4. Mild abdominopelvic ascites.
5. Colonic diverticulosis.
6. Infectious or inflammatory bronchiolitis throughout the bilateral lung bases.
A/P:
# intermittent Abdominal pain, ongoing for 2.5 weeks, likely due to symptomatic hepatic cyst vs MSL of anterior abdomen wall?
CT AP with contrast report above
Normal LFTs and lipase level.
GI consulted, cleared for discharge to follow up outpt
Cont Tylenol for Pain control
Antiemetics as needed
# Cough with scant Hemoptysis
# h/o bronchiectasis
Pt has stable respiratory status
S/P abx Zosyn in ED.
chest xray with trace pleural effusion but no obvious consolidation. CT scan mentions bronchiolitis on bilateral lung bases.
hold further abx for now, suspect leucocytosis was reactive
sputum culture with usual madai, blood culture negative
# Chronic Hyponatremia
Continue fluid restriction
Sodium level at 128 today
Follow sodium level
# Hypothyroidism
# h/o Jose Manuel thyroiditis and T3 resistance
Cont [employer] levothyroxine 100 mcg w/ 5mcg of liothyronine daily
Repeat TFTs in 6 weeks
# Hypertension
Continue metoprolol succinate 50 mg p.o. twice a day
BP stable
# Cachexia with severe protein caloric malnutrition
BMI 16
DVT prophylaxis-Lovenox SQ
CODE STATUS-full code
Anticipated Discharge: Today
Subjective/Interval History
-
Date of Service: August 12, 2023
Objective Data
-
Labs:
Laboratory Results
08/12/23
06:43
WBC 6.6
Hgb 10.7 L
Hct 32.6 L
Plt Count 249
Sodium 128 L
Potassium 4.9
Chloride 92 L
Carbon Dioxide 31 H
BUN 6 L
Creatinine 0.5 L
Glucose 91
Calcium 9.1
Vital Signs:
Vital Signs
Temp Pulse Resp BP Pulse Ox
36.7 C 63 16 145/79 98
08/12/23 07:00 08/12/23 07:49 08/12/23 07:00 08/12/23 07:49 08/12/23 07:00
I&O
08/11/23 08/12/23 08/13/23
06:59 06:59 06:59
Intake Total 730 / 730 1020 / 1020
Balance 730 / 730 1020 / 1020
Review of Systems
-
All other systems: Reviewed and negative
Respiratory: Reports Cough (chronic); Denies Trouble Breathing
Abdomen/GI: Reports Abdominal Pain (resolved )
Physical Exam
-
General: Well Developed, No Apparent Distress, Comfortable, Conversant and Cachectic
HEENT: Normocephalic, Atraumatic, Nose Appears Normal and Ears Appear Normal; Negative Oxygen
Respiratory: Clear to Auscultation and Non Labored Respirations; Negative Accessory Resp Muscle Use
Cardiac: Regular Rhythm and S1/S2
GI: Soft, Nontender, Nondistended, Normal Bowel Sounds and Other (scaphoid abdomen)
Skin: Warm and Dry
Neuro: Awake, Alert, Oriented and AO x 3
Psych: Calm and Intact Judgement/Insight
Data Reviewed
-
CT Scan: Report Reviewed by me
Labs: Labs Reviewed by me
--- NOTE | 2023-08-12 12:16 | CM ---
Reviewed chart, met with patient to obtain information for assessment. Patient stated that she lives in a split level home with two steps to enter. She described herself as independent with her ADLs, personal care, dressing and bathing. She can do
operator prefinish, cook, clean and do laundry.
Patient drives and can transport herself to her appointments and does all of her own shopping.
She denied any DME in her home.
She has never had VN services or been to a SNF.
Patient has a prescription plan and uses [facility] on [address] for all of her medications.
Patient's PCP is, Cindi ESCOBEDO.
MICHELLE letter provided, signed on chart.
Patient stated that she would like to return home when medically stable and did not feel that she would have any needs.
Plan: Case management will continue to follow and assist with discharge planning. Patient would like to return home when cleared. Her son will provide transportation.
--- NOTE | 2023-08-12 12:44 | W.DCSUMMARY ---
Discharge Summary
Discharge Data
Date of Admission: 08/10/23
Date of Discharge: 08/12/23
-
Pending Results: No
Hospital Course
Principal Diagnosis:
Intermittent abdominal pain, possibly due to symptomatic hepatic cyst versus musculoskeletal in etiology of the anterior abdominal wall
Chronic Diagnoses:�
Bronchiectasis
Chronic Hyponatremia
Hypothyroidism
History of Jose Manuel thyroiditis and T3 resistance
Hypertension
Cachexia with severe protein caloric malnutrition. BMI 16
Consultations:�
Gastroenterology
Procedures:�
None
Clinical course:�
This is a 68-year-old female, with past medical history as stated above, who presented with intermittent anterior abdominal pain
Problem 1:
Intermittent abdominal pain, possibly due to symptomatic hepatic cyst versus musculoskeletal in etiology of the anterior abdominal wall.
Her CT AP with contrast noted multiple hepatic cysts with a large cyst arising from the left hepatic lobe that is stable from the previous CT urogram, chronic infarct at the superior pole of the left kidney, Punctate left lower pole renal calculus.
Her LFT and lipase levels were within normal limit.
She was seen by GI and can follow-up with GI for her hepatic cyst outpatient.
She can continue with Tylenol for pain control.
As for the rest of her medical problems, they were stable during her hospital stay.
Discharge Plan
-
Patient Disposition: Home (Routine Discharge)
Discharge Diagnosis/Procedures: Intermittent anterior abdominal pain ongoing for 2.5 weeks possibly due to symptomatic hepatic cyst versus musculoskeletal etiology of anterior abdomen wall
Condition: Fair
Diet: As tolerated and Restrict fluids to 48 oz
Activity: As tolerated
Driving Restrictions: As prior to admission
Blood Work: Repeat TFTs with your PCP in 6 weeks
Referrals:
Cindi Peterson CRNP [Family Provider] - in less than 1 week
Additional Discharge Medication Instructions: Continue Tylenol for pain control
Prescriptions:
Continued
levothyroxine 100 MCG tablet
100 mcg PO DAILY
liothyronine 5 mcg Tablet
5 mcg PO DAILY
metoprolol succinate 50 mg Tablet Extended Release 24 Hr
50 mg PO BID
acetaminophen [Tylenol Extra Strength] 500 mg Tablet
1,000 mg PO DAILYPRN PRN (Reason: mild pain)
Systane (PF) 0.4-0.3 % Dropperette
1 drp BOTH EYES DAILYPRN PRN (Reason: dry eyes)
Pepcid Complete 10-800-165 mg Tablet,Chewable
1 tab PO HS
cholecalciferol (vitamin D3) 25 mcg (1,000 unit) Tablet
25 mcg PO DAILY
Discontinued
Biofreeze 0.2-3.5 % Gel
1 applic TOPICAL DAILY PRN (Reason: abd region)
Discharge Orders:
Discharge Patient (As Directed); Ordered 08/12/23
Ordered By: Kami Henriquez
Discharge Date and Time
Print Language: LIBERIAN
== END 2023-08-12 13:25 | disposition home or self-care (01) ==
LOC: 3 WEST ACU 07:37
PROVIDERS: Emergency Medicine; ADMITTING PHYSICIAN Internal Medicine; ATTENDING PHYSICIAN Internal Medicine; CONSULT PHYSICIAN Internal Medicine Gastroenterology; EMERGENCY PHYSICIAN Emergency Medicine; FAMILY PHYSICIAN Nurse Practitioner Adult Health
DX: R10.9 Unspecified abdominal pain (principal); J47.0 Bronchiectasis with acute lower respiratory infection; K76.89 Other specified diseases of liver; R04.2 Hemoptysis; R05.8 Other specified cough; R18.8 Other ascites; Z68.1 Body mass index [BMI] 19.9 or less, adult; E88.A Wasting disease (syndrome) due to underlying condition; E43 Unspecified severe protein-calorie malnutrition; J90 Pleural effusion, not elsewhere classified; J21.9 Acute bronchiolitis, unspecified; K57.30 Diverticulosis of large intestine without perforation or abscess without bleeding; N28.0 Ischemia and infarction of kidney; I10 Essential (primary) hypertension; E78.5 Hyperlipidemia, unspecified; E87.1 Hypo-osmolality and hyponatremia; R09.89 Other specified symptoms and signs involving the circulatory and respiratory systems; E78.00 Pure hypercholesterolemia, unspecified; E06.3 Autoimmune thyroiditis; N20.0 Calculus of kidney; D64.9 Anemia, unspecified; K21.9 Gastro-esophageal reflux disease without esophagitis; M06.9 Rheumatoid arthritis, unspecified; I25.2 Old myocardial infarction; Z87.01 Personal history of pneumonia (recurrent); Z87.442 Personal history of urinary calculi; Z88.6 Allergy status to analgesic agent; Z87.891 Personal history of nicotine dependence; Z88.8 Allergy status to other drugs, medicaments and biological substances; Z79.890 Hormone replacement therapy
CPT/HCPCS: 71046; 74177; 80048; 80053; 81003; 81015; 83690; 83735; 85025; 85027; 87040; 87070; 87205; 96361; 96365; 96375; 99285; G0378; Q9967

== ENCOUNTER 2024-03-10 11:39 | Emergency (ER) | payer MEDICARE, OTHER, SELFPAY ==
[2024-03-10] VITALS (7 sets, daily range): BP systolic 143–174; BP diastolic 71–100
[2024-03-10 12:38] LABS: % Basophils 0.3 % (0-2); % Eosinophils 0.3 % (0-6); % Immature Granulocytes 0.4 % (0-0.5); % Lymphocytes 12.1 % (20.5-51.1); % Monocytes 6.4 % (1.7-9.3); % Neutrophils 80.5 % (42.2-75.2); Absolute Immature Granulocytes 0.1 10^3/uL (0-0.05); Absolute Lymphocytes 1.4 10^3/uL (1.2-3.4); Absolute Monocytes 0.8 10^3/uL (0.1-0.6); Absolute Neutrophils 9.5 10^3/uL (1.4-6.5); Hematocrit 36.4 % (37.0-47.0); Hemoglobin 11.9 g/dL (12.0-16.0); Mean Corp Hgb Conc. 32.7 g/dL (33.0-37.0); Mean Corpuscular Hgb 30.5 pg (27.0-31.0); Mean Corpuscular Volume 93.3 fL (81.0-99.0); Mean Platelet Volume 8.9 fL (7.4-10.4); Nucleated Red Blood Cells % 0 %; Platelet Count 291 10^3/uL (130-400); Red Cell Dist. Width 13.1 % (11.5-14.5); White Blood Cell Count 11.8 10^3/uL (4.8-10.8)
[2024-03-10 13:10] LABS: ALT (SGPT) 16 U/L (0-35); AST (SGOT) 28 U/L (14-36); Albumin 4.6 g/dl (3.5-5.0); Alkaline Phosphatase 67 U/L (38-126); Blood Urea Nitrogen 16 mg/dl (7-17); Calcium 9.7 mg/dl (8.4-10.2); Carbon Dioxide 26 mmol/L (22-30); Chloride 87 mmol/L (98-107); Glucose 105 mg/dl (70-99); Potassium 5.3 mmol/L (3.5-5.1); Sodium 124 mmol/L (135-145); Total Bilirubin 0.5 mg/dl (0.2-1.3); Total Protein 7.7 g/dl (6.3-8.2); eGFR > 60.00
--- NOTE | 2024-03-10 16:48 | ED.GENMED ---
History of Present Illness
General
Chief Complaint: Blood Pressure Problem
Source: patient
Exam Limitations: none
Time Seen by Provider: 03/10/24 15:50
History of Present Illness
History of Present Illness:
68-year-old female with history of Sjogren's and hypertension presents with 3 to 4 days worth of persistently elevated hide blood pressure. She also notes significant discomfort to the back of her head that radiates to the front of her head. No
vision change unilateral numbness or weakness or slurred speech. She is not anticoagulated. The headache is gradual in onset. She takes metoprolol 50 twice a day for her blood pressure. She has a history of chronic hyponatremia. No chest pain
or shortness of breath. No other complaints
Past History
Past History
ED Past Medical History: HTN, Hypercholesterolemia, [place], Hypothyroidism and Other (Ulcer, PNA, Jose Manuel's thyroiditis, Anemia, Bronchiectasis )
ED Past Surgical History: Gynecological (Hysterectomy), Orthopedic (Left knee tissue overgrowth, Left wrist surgery) and Tonsilectomy
Social History
Tobacco: Former smoker
Alcohol: None
Personal:
Living: with family
Family History
Family History: Negative Diabetes, Hypertension or CAD
Phy Exam
Physical Exam
Physical Exam:
General: Well-appearing nontoxic female no acute respiratory distress
HEENT: Normocephalic atraumatic pupils equal round reactive to light
Heart: Regular rate and rhythm no murmurs
Lungs: Clear no wheeze
Neurologic exam: Alert and oriented no facial asymmetry dysarthria or aphasia. No drift
Extremities: No cyanosis
Course
Orders/Labs/Results
Orders:
Orders
03/10/24 12:19
Complete Blood Count/With Diff Urgent
Comprehensive Metabolic Panel Urgent
03/10/24 16:31
CT Head W/o Iv Contrast Urgent
Comment:
Reason For Exam: headache, elevated bp
Diphenhydramine [Benadryl] 25 mg IV NOW STA
Metoclopramide [Reglan] 10 mg IV NOW STA
03/10/24 16:49
Electrocardiogram (*1) Urgent
Reason for Study: Other
Other Reason for Exam: htn
EKG- Treatment ONCE
Abnormal Lab Results
03/10/24
12:19
WBC 11.8 H 10^3/uL
(4.8-10.8)
RBC 3.90 L 10^6/uL
(4.20-5.40)
Hgb 11.9 L g/dL
(12.0-16.0)
Hct 36.4 L %
(37.0-47.0)
MCHC 32.7 L g/dL
(33.0-37.0)
Abs Immat Gran (auto) 0.1 H 10^3/uL
(0-0.05)
Absolute Neuts (auto) 9.5 H 10^3/uL
(1.4-6.5)
Absolute Monos (auto) 0.8 H 10^3/uL
(0.1-0.6)
Neutrophils % 80.5 H %
(42.2-75.2)
Lymphocytes % 12.1 L %
(20.5-51.1)
Sodium 124 L mmol/L
(135-145)
Potassium 5.3 H mmol/L
(3.5-5.1)
Chloride 87 L mmol/L
(98-107)
Glucose 105 H mg/dl
(70-99)
03/10/24 12:19
03/10/24 12:19
Vital Signs
Initial and Last Documented VS:
Initial Vital Signs
Temp Pulse Resp BP Pulse Ox
98.5 F 79 18 174/100 98
03/10/24 12:02 03/10/24 12:02 03/10/24 12:02 03/10/24 12:02 03/10/24 12:02
Last Documented Vital Signs
Temp Pulse Resp BP Pulse Ox
98.5 F 75 17 167/81 98
03/10/24 12:02 03/10/24 17:00 03/10/24 17:00 03/10/24 17:00 03/10/24 17:00
MDM/Problems Addressed
Differential Diagnosis Includes:
Patient with headache in the setting of elevated blood pressure. Blood pressure now 160s over 80s. Neurologically intact. Patient quite concerned about her ongoing headache. Suspect might be related to her blood pressure. CT head pending. Will
treat with Reglan and Benadryl
*Critical Care Note
Total Time (30-74mins, 75-104mins- exclusive of procedures): Not Applicable
Update Note
Update Note:
CT head was negative. Blood pressure improved. Headache improved after medications. EKG reviewed. At this point no indication for admission. She has a sodium of 124 however this is chronic for her. Recommend follow-up with her
ED Attending Note
-
Portions of this chart may have been created with voice recognition software.� Occasional wrong word or��sound alike� substitutions may have occurred due to the inherent limitations of voice recognition software.
Discharge Plan
Departure
Patient Disposition: Home (Routine Discharge)
Date of Disposition: 03/10/24
Time of Disposition: 18:42
Patient with high blood pressure during this ER visit?: No
Discharge Problem:
Hypertension
Instructions: High Blood Pressure (DC)
Prescriptions:
No Action
levothyroxine 100 MCG tablet
100 mcg PO DAILY
liothyronine 5 mcg Tablet
5 mcg PO DAILY
metoprolol succinate 50 mg Tablet Extended Release 24 Hr
50 mg PO BID
acetaminophen [Tylenol Extra Strength] 500 mg Tablet
1,000 mg PO DAILYPRN PRN (Reason: mild pain)
Systane (PF) 0.4-0.3 % Dropperette
1 drp BOTH EYES DAILYPRN PRN (Reason: dry eyes)
Pepcid Complete 10-800-165 mg Tablet,Chewable
1 tab PO HS
cholecalciferol (vitamin D3) 25 mcg (1,000 unit) Tablet
25 mcg PO DAILY
Referrals:
Cindi Peterson CRNP [Family Provider] -
Activity Restrictions/Additional Instructions:
Continue current medication regimen. Return here for worsening symptoms otherwise follow-up with your doctor
Interventions
Interventions:
*Risk Screen - Suicide Last Done: 03/10/24 12:08
*General Assessment Last Done: 03/10/24 12:08
*Neglect/Abuse Screening Last Done: 03/10/24 12:08
ED- Cardiac Assessment Last Done: 03/10/24 17:14
ED- Neurological Assessment Last Done: 03/10/24 17:14
ED- Pulmonary Assessment Last Done: 03/10/24 17:14
Discharge Date and Time
Print Language: OCCITAN
[2024-03-10] MEDS: REGLAN 10 MG IV (17:00)
[2024-03-10] MEDS: BENADRYL 25 MG IV (17:00)
== END 2024-03-10 19:14 | disposition home or self-care (01) ==
LOC: EMR 11:39
PROVIDERS: Physician Assistant; EMERGENCY PHYSICIAN Emergency Medicine; FAMILY PHYSICIAN Nurse Practitioner Adult Health
DX: I10 Essential (primary) hypertension (principal); Z87.891 Personal history of nicotine dependence
CPT/HCPCS: 99285; 96374; 96375; 70450; 80053; 85025; 93005

== ENCOUNTER 2024-04-28 14:31 | Emergency (ER) | payer MEDICARE, OTHER, SELFPAY ==
[2024-04-28] VITALS (7 sets, daily range): BP systolic 156–188; BP diastolic 84–102; BMI 15.0
--- NOTE | 2024-04-28 14:36 | ED.GENMED ---
ED Provider Triage
<Rubio Adams PA-C - Last Filed: 04/28/24 14:38>
-
Patient seen by provider in Triage?: Seen in Triage
Attestation: A medical screening examination has been initiated by a qualified medical provider. Based on the assessment performed at this time, it has been determined that an emergent medical condition may exist and the patient has been informed
that further medical evaluation and possible additional diagnostic testing may be needed.
HPI: 69-year-old female presenting the emergency department for generalized weakness, had labs done at outpatient facility today which showed a sodium of 124. Patient with history of similar but not currently on any medications. Labs ordered as
well as EKG. Patient otherwise hemodynamically stable.
GENERAL: Alert , in no apparent distress
EYE: No visual abnormalities.
NECK: Trachea midline
ENT: No visible abnormalities.
LUNGS: No acute respiratory distress
NEUROLOGICAL: Alert and oriented
SKIN: Skin intact. No visible changes.
MUSCULOSKELETAL: Moving extremities normally
PSYCH: Normal and appropriate interaction.
This is a medical evaluation conducted in person to initiate diagnostic evaluation and provide initial therapeutics. Please see further documentation by the treating clinician.
History of Present Illness
<Rubio Adams PA-C - Last Filed: 04/28/24 14:38>
General
Chief Complaint: Abnormal Lab Value
Time Seen by Provider: 04/28/24 20:42
<GREGG Dias - Last Filed: 04/29/24 00:33>
General
Source: patient
Exam Limitations: none
History of Present Illness
History of Present Illness:
This is a 69 year old female that comes in with c/o abnormal labs. States that she had gone to her PCP and she was just not feeling good. States that she has had Bronchiolitis in the past and she was placed on a Z-pack. States that she was feeling
better. Then her arms just started to hurt. Patient had blood work shows last week on and her sodium was 125. State that today it was rechecked. States that she has also been coughing up blood and that she feels a little SOB occasionally.
States that occasionally she is nauseated. Questionable dizziness. Denies any fever, chills, chest pain, abd pain, vomiting, diarrhea, headache, urinary burning.
Past History
<Rubio Adams PA-C - Last Filed: 04/28/24 14:38>
Past History
ED Past Medical History: HTN, Hypercholesterolemia, [place], Hypothyroidism and Other (Ulcer, PNA, Jose Manuel's thyroiditis, Anemia, Bronchiectasis )
ED Past Surgical History: Gynecological (Hysterectomy), Orthopedic (Left knee tissue overgrowth, Left wrist surgery) and Tonsilectomy
Social History
Tobacco: Former smoker
Alcohol: None
Personal:
Living: with family
Family History
Family History: Negative Diabetes, Hypertension or CAD
<GREGG Dias - Last Filed: 04/29/24 00:33>
Past History
ED Past Medical History: [place] (Denies) and Other (Ulcer, PNA, Jose Manuel's thyroiditis, Anemia, Bronchiectasis , T3 resistent)
Social History
Living: alone
Review of Systems
<GREGG Dias - Last Filed: 04/29/24 00:33>
Review of Systems
All Other Systems: ROS reviewed and negative except as documented in HPI and ROS
Constitutional: Reports no symptoms; Denies fever or chills
EENT: Reports no symptoms
Respiratory: Reports cough (occasional with blood) and trouble breathing (occasional)
Cardiac: Reports no symptoms; Denies chest pain
ABD/GI: Reports nausea; Denies abdominal pain, vomiting or diarrhea
: Reports no symptoms; Denies dysuria, frequency or urgency
Musculoskeletal: Reports no symptoms
Skin: Reports no symptoms
Neurological: Reports other (Patient unsure if she feels dizzy); Denies headache
Psychiatric: Reports no symptoms
Phy Exam
<GREGG Dias - Last Filed: 04/29/24 00:33>
General Physical Exam
General Presentation: well appearing and no apparent distress
General age: appears stated age
General Skin: warm and dry
General Habitus: elderly
General Mental: alert
General Hydration: appears well hydrated
ENT Exam
ENT Exam: TM's normal, pharynx normal and neck supple
Eye Exam
Eye Exam: EOMI
Cardiovascular Exam
Cardiovascular Exam: regular rate/rhythm, no edema and normal peripheral pulses
Pulmonary Exam
Pulmonary Exam: no respiratory distress, no rales, chest non tender, no rhonchi, no wheezing, no cough and other (Fine crackles left base)
Gastrointestinal Exam
Gastrointestinal Exam: normal bowel sounds, non tender, soft, no organomegaly, no pulsatile mass and non distended
Musculoskeletal Exam
Musculoskeletal Exam: full ROM and no edema
Skin Exam
Skin Exam: normal color, warm/dry, no rash and no petechia
Psychiatric Exam
Psychiatric Exam: normal mood/affect
Course
<Rubio Adams PA-C - Last Filed: 04/28/24 14:38>
Orders/Labs/Results
Orders:
Orders
04/28/24 14:37
Electrocardiogram (*1) Urgent
Reason for Study: Other
Other Reason for Exam: hyponatremia/hyperkalemia
EKG- Treatment ONCE
04/28/24 14:51
Complete Blood Count/With Diff Urgent
Comprehensive Metabolic Panel Urgent
Serum Osmolality Urgent
04/28/24 15:07
Urinalysis Reflex To Culture Urgent
Date Specimen was Collected: 04/28/24
Time Specimen was Collected: 15:03
Urine Microscopic Reflex Cult Urgent
Urine Sodium Urgent
Date Specimen was Collected: 04/28/24
Time Specimen was Collected: 15:03
04/28/24 17:07
CR Chest - 2 Views Urgent
Comment:
Reason For Exam: hemoptysis
04/28/24 21:18
CT Chest With Iv Contrast Urgent
Comment:
Reason For Exam: Hemoptysis, SOB
04/28/24 21:46
COVID-19 Antigen Urgent
Source: Nasal Swab
Influenza A+B Rapid Molecular Urgent
JESUS MANUEL Source: Nasal Swab
Specimen Description:
Abnormal Lab Results
04/28/24 04/28/24
14:51 15:07
WBC 11.1 H 10^3/uL
(4.8-10.8)
RBC 3.59 L 10^6/uL
(4.20-5.40)
Hgb 10.9 L g/dL
(12.0-16.0)
Hct 34.1 L %
(37.0-47.0)
MCHC 32.0 L g/dL
(33.0-37.0)
Abs Immat Gran (auto) 0.1 H 10^3/uL
(0-0.05)
Absolute Neuts (auto) 8.3 H 10^3/uL
(1.4-6.5)
Absolute Monos (auto) 0.8 H 10^3/uL
(0.1-0.6)
Lymphocytes % 17.3 L %
(20.5-51.1)
Sodium 128 L mmol/L
(135-145)
Chloride 89 L mmol/L
(98-107)
Creatinine 0.5 L mg/dL
(0.6-1.0)
Serum Osmolality 268 L mOsm/kg
(275-300)
Ur Occult Blood Reflex 2+ A
(Negative)
Urine RBC 7-10 A /HPF
(0-2)
Urine Bacteria (Reflex) Few A
(Negative)
Urine Sodium 94 H mmol/L
(30-90)
Urine Albumin (Reflex) 1+ A
(Neg - Trace)
04/28/24 14:51
04/28/24 14:51
Vital Signs
Initial and Last Documented VS:
Initial Vital Signs
Temp Pulse Resp BP Pulse Ox
97.9 F 75 18 170/98 96
04/28/24 14:33 04/28/24 14:33 04/28/24 14:33 04/28/24 14:33 04/28/24 14:33
Last Documented Vital Signs
Temp Pulse Resp BP Pulse Ox
97.9 F 68 18 156/84 94
04/28/24 20:30 04/28/24 22:30 04/28/24 22:30 04/28/24 22:00 04/28/24 22:30
<GREGG Dias - Last Filed: 04/29/24 00:33>
Orders/Labs/Results
Orders:
Orders
04/28/24 14:37
Electrocardiogram (*1) Urgent
Reason for Study: Other
Other Reason for Exam: hyponatremia/hyperkalemia
EKG- Treatment ONCE
04/28/24 14:51
Complete Blood Count/With Diff Urgent
Comprehensive Metabolic Panel Urgent
Serum Osmolality Urgent
04/28/24 15:07
Urinalysis Reflex To Culture Urgent
Date Specimen was Collected: 04/28/24
Time Specimen was Collected: 15:03
Urine Microscopic Reflex Cult Urgent
Urine Sodium Urgent
Date Specimen was Collected: 04/28/24
Time Specimen was Collected: 15:03
04/28/24 17:07
CR Chest - 2 Views Urgent
Comment:
Reason For Exam: hemoptysis
04/28/24 21:18
CT Chest With Iv Contrast Urgent
Comment:
Reason For Exam: Hemoptysis, SOB
04/28/24 21:46
COVID-19 Antigen Urgent
Source: Nasal Swab
Influenza A+B Rapid Molecular Urgent
JESUS MANUEL Source: Nasal Swab
Specimen Description:
Abnormal Lab Results
04/28/24 04/28/24
14:51 15:07
WBC 11.1 H 10^3/uL
(4.8-10.8)
RBC 3.59 L 10^6/uL
(4.20-5.40)
Hgb 10.9 L g/dL
(12.0-16.0)
Hct 34.1 L %
(37.0-47.0)
MCHC 32.0 L g/dL
(33.0-37.0)
Abs Immat Gran (auto) 0.1 H 10^3/uL
(0-0.05)
Absolute Neuts (auto) 8.3 H 10^3/uL
(1.4-6.5)
Absolute Monos (auto) 0.8 H 10^3/uL
(0.1-0.6)
Lymphocytes % 17.3 L %
(20.5-51.1)
Sodium 128 L mmol/L
(135-145)
Chloride 89 L mmol/L
(98-107)
Creatinine 0.5 L mg/dL
(0.6-1.0)
Serum Osmolality 268 L mOsm/kg
(275-300)
Ur Occult Blood Reflex 2+ A
(Negative)
Urine RBC 7-10 A /HPF
(0-2)
Urine Bacteria (Reflex) Few A
(Negative)
Urine Sodium 94 H mmol/L
(30-90)
Urine Albumin (Reflex) 1+ A
(Neg - Trace)
04/28/24 14:51
04/28/24 14:51
Leukocytosis. H/H slightly low, Hyponatremia, hypochloremia, Serum osmolality slightly low. Urine negative for infection. Urine Sodium very slightly elevated.
Vital Signs
Initial and Last Documented VS:
Initial Vital Signs
Temp Pulse Resp BP Pulse Ox
97.9 F 75 18 170/98 96
04/28/24 14:33 04/28/24 14:33 04/28/24 14:33 04/28/24 14:33 04/28/24 14:33
Last Documented Vital Signs
Temp Pulse Resp BP Pulse Ox
97.9 F 68 18 156/84 94
04/28/24 20:30 04/28/24 22:30 04/28/24 22:30 04/28/24 22:00 04/28/24 22:30
<Ramirez Landin, DO - Last Filed: 04/28/24 21:41>
Orders/Labs/Results
Orders:
Orders
04/28/24 14:37
Electrocardiogram (*1) Urgent
Reason for Study: Other
Other Reason for Exam: hyponatremia/hyperkalemia
EKG- Treatment ONCE
04/28/24 14:51
Complete Blood Count/With Diff Urgent
Comprehensive Metabolic Panel Urgent
Serum Osmolality Urgent
04/28/24 15:07
Urinalysis Reflex To Culture Urgent
Date Specimen was Collected: 04/28/24
Time Specimen was Collected: 15:03
Urine Microscopic Reflex Cult Urgent
Urine Sodium Urgent
Date Specimen was Collected: 04/28/24
Time Specimen was Collected: 15:03
04/28/24 17:07
CR Chest - 2 Views Urgent
Comment:
Reason For Exam: hemoptysis
04/28/24 21:18
CT Chest With Iv Contrast Urgent
Comment:
Reason For Exam: Hemoptysis, SOB
04/28/24 21:46
COVID-19 Antigen Urgent
Source: Nasal Swab
Influenza A+B Rapid Molecular Urgent
JESUS MANUEL Source: Nasal Swab
Specimen Description:
Abnormal Lab Results
04/28/24 04/28/24
14:51 15:07
WBC 11.1 H 10^3/uL
(4.8-10.8)
RBC 3.59 L 10^6/uL
(4.20-5.40)
Hgb 10.9 L g/dL
(12.0-16.0)
Hct 34.1 L %
(37.0-47.0)
MCHC 32.0 L g/dL
(33.0-37.0)
Abs Immat Gran (auto) 0.1 H 10^3/uL
(0-0.05)
Absolute Neuts (auto) 8.3 H 10^3/uL
(1.4-6.5)
Absolute Monos (auto) 0.8 H 10^3/uL
(0.1-0.6)
Lymphocytes % 17.3 L %
(20.5-51.1)
Sodium 128 L mmol/L
(135-145)
Chloride 89 L mmol/L
(98-107)
Creatinine 0.5 L mg/dL
(0.6-1.0)
Serum Osmolality 268 L mOsm/kg
(275-300)
Ur Occult Blood Reflex 2+ A
(Negative)
Urine RBC 7-10 A /HPF
(0-2)
Urine Bacteria (Reflex) Few A
(Negative)
Urine Sodium 94 H mmol/L
(30-90)
Urine Albumin (Reflex) 1+ A
(Neg - Trace)
04/28/24 14:51
04/28/24 14:51
Vital Signs
Initial and Last Documented VS:
Initial Vital Signs
Temp Pulse Resp BP Pulse Ox
97.9 F 75 18 170/98 96
04/28/24 14:33 04/28/24 14:33 04/28/24 14:33 04/28/24 14:33 04/28/24 14:33
Last Documented Vital Signs
Temp Pulse Resp BP Pulse Ox
97.9 F 68 18 156/84 94
04/28/24 20:30 04/28/24 22:30 04/28/24 22:30 04/28/24 22:00 04/28/24 22:30
<GREGG Dias - Last Filed: 04/29/24 00:33>
MDM/Problems Addressed
Differential Diagnosis Includes:
Hyponatremia, Hemoptysis
MDM/Problems Addressed:
This is a 69 year old female that comes in with c/o abnormal labs. States that she has a history of Low sodium and last week her sodium was 124. Patient had blood work today. Sates that she has also recently been coughing up blood. Patient was
recently treated for Bronchiolitis.
Will check labs, Chest x-ray and if needed CT of the chest
Chronic conditions affecting care:
Hyponatremia
Acute Exacerbation and/or Progression of Chronic Illness:
Hyponatremia
<GREGG Dias - Last Filed: 04/29/24 00:33>
*Radiology
Radiology exam reviewed: radiology read reviewed (Chest-Stable radiographic appearacne compared to most recent radiograph of August 10, 2023. CT-Lugs are hyperinflated suggesting COPD, There are branching small nodular opacities compatible with
small airway pneumonitis. Areas of bronchiectasis and mucus plugging. )
*Pulse Oximetry
Patient hypoxic: no
*EKG
Interpreted by ED Provider?: Yes
Heart Rate: 72
Rate: normal
Rhythm: sinus
[place]: left axis deviation
Interval: normal interval
QRS Pattern: left bundle branch block
*Clinical Evaluator Interpretation
Rate: normal
Heart Rate: 73
Rhythm: sinus
*Critical Care Note
Total Time (30-74mins, 75-104mins- exclusive of procedures): Not Applicable
ED Attending Note
<Rubio Adams PA-C - Last Filed: 04/28/24 14:38>
-
Portions of this chart may have been created with voice recognition software.� Occasional wrong word or��sound alike� substitutions may have occurred due to the inherent limitations of voice recognition software.
<Ramirez Landin DO - Last Filed: 04/28/24 21:41>
ED Attending Note
Patient seen and examined by attending physician: Yes
I performed the substantive portion of visit, reviewed & personally made and approve the management plan that is documented in note by myself or SHARON.: Yes
Discharge Plan
Departure
Patient Disposition: Home (Routine Discharge)
Date of Disposition: 04/29/24
Time of Disposition: 00:30
Patient with high blood pressure during this ER visit?: Yes
Condition: Good
Covid-19: Not Applicable
Discharge Problem:
Mild Hyponatremia, Bronchiectasis
Instructions: Bronchiectasis in adults, Hyponatremia, BLOOD PRESSURE
Prescriptions:
No Action
levothyroxine 100 MCG tablet
100 mcg PO DAILY
liothyronine 5 mcg Tablet
5 mcg PO DAILY
metoprolol succinate 50 mg Tablet Extended Release 24 Hr
50 mg PO BID
acetaminophen [Tylenol Extra Strength] 500 mg Tablet
1,000 mg PO DAILYPRN PRN (Reason: mild pain)
Systane (PF) 0.4-0.3 % Dropperette
1 drp BOTH EYES DAILYPRN PRN (Reason: dry eyes)
Pepcid Complete 10-800-165 mg Tablet,Chewable
1 tab PO HS
cholecalciferol (vitamin D3) 25 mcg (1,000 unit) Tablet
25 mcg PO DAILY
Referrals:
Sigifredo Handy MD [Family Provider] - Follow up in 2-3 days
Activity Restrictions/Additional Instructions:
As discussed your sodium has improved. Please continue with your Gatorade to help increase your sodium Level. You may also try come canned soup or boxed food. Follow up with the family doctor for recheck. IF YOU HAVE ANY OTHER CONCERNS PLEASE RETURN
TO THE EMERGENCY ROOM
Interventions
Interventions:
*Risk Screen - Suicide Last Done: 04/28/24 14:33
*General Assessment Last Done: 04/28/24 14:33
*Neglect/Abuse Screening Last Done: 04/28/24 14:33
ED- Fall Risk Assessment Last Done: 04/28/24 20:55
*ED COVID-19 Vaccine History Last Done: 04/28/24 14:33
Discharge Date and Time
Print Language: SOMALI
[2024-04-28 15:16] LABS: % Basophils 0.4 % (0-2); % Eosinophils 0.7 % (0-6); % Immature Granulocytes 0.5 % (0-0.5); % Lymphocytes 17.3 % (20.5-51.1); % Monocytes 6.7 % (1.7-9.3); % Neutrophils 74.4 % (42.2-75.2); Absolute Eosinophils 0.1 10^3/uL (0-0.7); Absolute Immature Granulocytes 0.1 10^3/uL (0-0.05); Absolute Lymphocytes 1.9 10^3/uL (1.2-3.4); Absolute Monocytes 0.8 10^3/uL (0.1-0.6); Absolute Neutrophils 8.3 10^3/uL (1.4-6.5); Hematocrit 34.1 % (37.0-47.0); Hemoglobin 10.9 g/dL (12.0-16.0); Mean Corpuscular Hgb 30.4 pg (27.0-31.0); Mean Platelet Volume 9.2 fL (7.4-10.4); Nucleated Red Blood Cells % 0 %; Platelet Count 267 10^3/uL (130-400); Red Blood Cell Count 3.59 10^6/uL (4.20-5.40); Red Cell Dist. Width 13.8 % (11.5-14.5); White Blood Cell Count 11.1 10^3/uL (4.8-10.8)
[2024-04-28 15:18] LABS: Urine Albumin 1+ (Neg - Trace); Urine Bilirubin Negative (Negative); Urine Character Clear (Clear); Urine Color Yellow; Urine Glucose Negative (Negative); Urine Ketone Negative (Negative); Urine Leukocyte Negative (Negative); Urine Nitrite Negative (Negative); Urine Specific Gravity 1.025 (<1.030); Urine Urobilinogen Negative (Neg - 1+)
[2024-04-28 15:37] LABS: ALT (SGPT) 15 U/L (0-35); AST (SGOT) 28 U/L (14-36); Albumin 4.3 g/dl (3.5-5.0); Alkaline Phosphatase 73 U/L (38-126); Blood Urea Nitrogen 15 mg/dl (7-17); Calcium 9.1 mg/dl (8.4-10.2); Carbon Dioxide 29 mmol/L (22-30); Chloride 89 mmol/L (98-107); Glucose 92 mg/dl (70-99); Potassium 4.7 mmol/L (3.5-5.1); Sodium 128 mmol/L (135-145); Total Bilirubin 0.2 mg/dl (0.2-1.3); Total Protein 7.1 g/dl (6.3-8.2); eGFR > 60.00
[2024-04-28 15:48] LABS: Urine Mucus Few; Urine Occult Blood 2+ (Negative)
[2024-04-28 15:49] LABS: Urine Squamous Cell 0-2 /LPF (Few); Urine White Cell 0-2 /HPF (0-5)
[2024-04-28 15:49] LABS: Osmolality Serum 268 mOsm/kg (275-300)
[2024-04-28 15:50] LABS: Urine Bacteria Few (Negative)
[2024-04-28 16:42] LABS: Urine Sodium 94 mmol/L (30-90)
[2024-04-28 22:16] LABS: COVID-19 Antigen Negative (Negative)
== END 2024-04-29 00:56 | disposition home or self-care (01) ==
LOC: EMR 14:31
PROVIDERS: Clinical Nurse Specialist Family Health; Physician Assistant Medical; EMERGENCY PHYSICIAN Emergency Medicine; FAMILY PHYSICIAN Family Medicine
DX: E87.1 Hypo-osmolality and hyponatremia (principal); J47.9 Bronchiectasis, uncomplicated; I10 Essential (primary) hypertension; Z87.891 Personal history of nicotine dependence
CPT/HCPCS: 99285; 36415; 71046; 71260; 80053; 81003; 81015; 83930; 84295; 84300; 85025; 87502; 87811; 93005; Q9967

== ENCOUNTER 2024-06-28 14:29 | Emergency (ER) | payer MEDICARE, OTHER, SELFPAY ==
[2024-06-28 14:59] VITALS: BP 168/107
[2024-06-28 15:31] LABS: % Basophils 0.3 % (0-2); % Eosinophils 1.2 % (0-6); % Immature Granulocytes 1.4 % (0-0.5); % Lymphocytes 18.8 % (20.5-51.1); % Monocytes 6.8 % (1.7-9.3); % Neutrophils 71.5 % (42.2-75.2); Absolute Eosinophils 0.1 10^3/uL (0-0.7); Absolute Immature Granulocytes 0.1 10^3/uL (0-0.05); Absolute Lymphocytes 1.6 10^3/uL (1.2-3.4); Absolute Monocytes 0.6 10^3/uL (0.1-0.6); Absolute Neutrophils 6.2 10^3/uL (1.4-6.5); Hematocrit 34.3 % (37.0-47.0); Hemoglobin 11.3 g/dL (12.0-16.0); Mean Corp Hgb Conc. 32.9 g/dL (33.0-37.0); Mean Corpuscular Hgb 31.3 pg (27.0-31.0); Mean Platelet Volume 9.1 fL (7.4-10.4); Nucleated Red Blood Cells % 0 %; Platelet Count 257 10^3/uL (130-400); Red Blood Cell Count 3.61 10^6/uL (4.20-5.40); Red Cell Dist. Width 12.2 % (11.5-14.5); White Blood Cell Count 8.7 10^3/uL (4.8-10.8)
[2024-06-28 15:45] LABS: ALT (SGPT) 14 U/L (0-35); AST (SGOT) 25 U/L (14-36); Albumin 4.6 g/dl (3.5-5.0); Alkaline Phosphatase 71 U/L (38-126); Blood Urea Nitrogen 20 mg/dl (7-17); Calcium 9.7 mg/dl (8.4-10.2); Carbon Dioxide 28 mmol/L (22-30); Chloride 91 mmol/L (98-107); Glucose 102 mg/dl (70-99); Potassium 5.1 mmol/L (3.5-5.1); Sodium 128 mmol/L (135-145); Total Bilirubin 0.6 mg/dl (0.2-1.3); Total Protein 7.4 g/dl (6.3-8.2); eGFR > 60.00
[2024-06-28 18:09] VITALS: BP 167/89
[2024-06-28 18:16] LABS: Urine Albumin Negative (Neg - Trace); Urine Bilirubin Negative (Negative); Urine Character Clear (Clear); Urine Color Yellow; Urine Glucose Negative (Negative); Urine Ketone Negative (Negative); Urine Leukocyte Negative (Negative); Urine Nitrite Negative (Negative); Urine Occult Blood 3+ (Negative); Urine Urobilinogen Negative (Neg - 1+)
[2024-06-28 18:22] VITALS: BMI 14.9
[2024-06-28 18:36] LABS: Urine Squamous Cell 0-2 /LPF (Few); Urine White Cell 0-2 /HPF (0-5)
[2024-06-28 18:37] LABS: Urine Bacteria Few (Negative)
--- NOTE | 2024-06-28 20:13 | ED.GENMED ---
History of Present Illness
General
Chief Complaint: Flank Pain
Time Seen by Provider: 06/28/24 17:03
History of Present Illness
History of Present Illness:
69-year-old female with history of chronic hyponatremia presents to the emergency department for evaluation of persistent left flank pain for the past 2 to 3 weeks. Seems to be worsening. Also notes intermittent constipation and diarrhea over this
time. Today she was concerned that she was not urinating much thus prompting her to come to the ED. No fevers or chills, reports normal appetite with no nausea or vomiting.
Past History
Past History
ED Past Medical History: HTN, Hypercholesterolemia, [place] (Denies), Hypothyroidism and Other (Ulcer, PNA, Jose Manuel's thyroiditis, Anemia, Bronchiectasis , T3 resistent)
ED Past Surgical History: Gynecological (Hysterectomy), Orthopedic (Left knee tissue overgrowth, Left wrist surgery) and Tonsilectomy
Social History
Tobacco: Former smoker
Alcohol: None
Personal:
Living: alone
Family History
Family History: Negative Diabetes, Hypertension or CAD
Review of Systems
Review of Systems
Allergies reviewed?: Yes
All Other Systems: ROS reviewed and negative except as documented in HPI and ROS
Phy Exam
Physical Exam
Physical Exam:
GEN: Well appearing, NAD, WDWN
HEENT: Oral mucosa moist, no scleral icterus
Cardiac: Regular rate
Lung: No respiratory distress, no tachypnea
Abdomen: Soft, grossly nontender to palpation
MSK: No gross deformity or injuries
Skin: Good color, no pallor or jaundice, no rashes
Neuro: AO x3, moves all extremities freely
Psych: Calm, cooperative
Course
Orders/Labs/Results
Orders:
Orders
06/28/24 15:14
CMP [Comprehensive Metabolic Panel] Urgent
Complete Blood Count/With Diff Urgent
06/28/24 17:37
CT Abd/Pel (IV only)-DH only Urgent
Comment:
Reason For Exam: LLQ/flank pain
06/28/24 18:00
Urinalysis Reflex To Culture Urgent
Date Specimen was Collected: 06/28/24
Time Specimen was Collected: 17:59
Urine Microscopic Reflex Cult Urgent
Urine Culture Urgent
JESUS MANUEL Source: U
Specimen Description:
Date Specimen was Collected: 06/28/24
Time Specimen was Collected: 17:59
06/28/24 20:06
Add On - Microbiology Urgent
Tests Added?: urine culture
Abnormal Lab Results
06/28/24 06/28/24
15:14 18:00
RBC 3.61 L 10^6/uL
(4.20-5.40)
Hgb 11.3 L g/dL
(12.0-16.0)
Hct 34.3 L %
(37.0-47.0)
MCH 31.3 H pg
(27.0-31.0)
MCHC 32.9 L g/dL
(33.0-37.0)
Abs Immat Gran (auto) 0.1 H 10^3/uL
(0-0.05)
Immature Gran % 1.4 H %
(0-0.5)
Lymphocytes % 18.8 L %
(20.5-51.1)
Sodium 128 L mmol/L
(135-145)
Chloride 91 L mmol/L
(98-107)
BUN 20 H mg/dl
(7-17)
Glucose 102 H mg/dl
(70-99)
Ur Occult Blood Reflex 3+ A
(Negative)
Urine RBC 3-6 A /HPF
(0-2)
Urine Bacteria (Reflex) Few A
(Negative)
06/28/24 15:14
06/28/24 15:14
Vital Signs
Initial and Last Documented VS:
Initial Vital Signs
Pulse Resp BP Pulse Ox
71 20 168/107 96
06/28/24 14:59 06/28/24 14:59 06/28/24 14:59 06/28/24 14:59
Last Documented Vital Signs
Temp Pulse Resp BP Pulse Ox
98.1 F 71 16 142/90 95
06/28/24 18:00 06/28/24 20:35 06/28/24 20:35 06/28/24 20:35 06/28/24 20:35
MDM/Problems Addressed
MDM/Problems Addressed:
Imaging reveals no acute pathology. Her labs are reassuring, urinalysis does have small degree of RBCs and bacteria thus will send for culture, no indication for empiric antibiotics however would treat if urine culture is positive
*Critical Care Note
Total Time (30-74mins, 75-104mins- exclusive of procedures): Not Applicable
ED Attending Note
-
Portions of this chart may have been created with voice recognition software.� Occasional wrong word or��sound alike� substitutions may have occurred due to the inherent limitations of voice recognition software.
Discharge Plan
Departure
Patient Disposition: Home (Routine Discharge)
Date of Disposition: 06/28/24
Time of Disposition: 20:13
Patient with high blood pressure during this ER visit?: No
Discharge Problem:
Left flank pain
Instructions: Flank Pain (DC)
Prescriptions:
No Action
levothyroxine 100 MCG tablet
100 mcg PO DAILY
liothyronine 5 mcg Tablet
5 mcg PO DAILY
metoprolol succinate 50 mg Tablet Extended Release 24 Hr
50 mg PO BID
acetaminophen [Tylenol Extra Strength] 500 mg Tablet
1,000 mg PO DAILYPRN PRN (Reason: mild pain)
Systane (PF) 0.4-0.3 % Dropperette
1 drp BOTH EYES DAILYPRN PRN (Reason: dry eyes)
Pepcid Complete 10-800-165 mg Tablet,Chewable
1 tab PO HS
cholecalciferol (vitamin D3) 25 mcg (1,000 unit) Tablet
25 mcg PO DAILY
Referrals:
Cindi Peterson CRNP [Family Provider] -
Activity Restrictions/Additional Instructions:
Your urine culture will result in 2 to 3 days, if this is negative see
Interventions
Interventions:
*Risk Screen - Suicide Last Done: 06/28/24 14:59
*General Assessment Last Done: 06/28/24 14:59
*Neglect/Abuse Screening Last Done: 06/28/24 18:26
*ED- Fall Risk Assessment Last Done: 06/28/24 18:26
*ED COVID-19 Vaccine History Last Done: 06/28/24 18:26
*Nursing Disposition Last Done: 06/28/24 20:35
WB-Ddkmav-Bfhamxylcb Assessment Last Done: 06/28/24 18:26
ED-Female Genitourinary Assessment Last Done: 06/28/24 18:26
Discharge Date and Time
Discharge Date/Time: 06/28/24 20:35
Print Language: GEORGIAN
[2024-06-28 20:35] VITALS: BP 142/90
== END 2024-06-28 20:35 | disposition home or self-care (01) ==
LOC: EMR 14:29
PROVIDERS: Physician Assistant; EMERGENCY PHYSICIAN Emergency Medicine; FAMILY PHYSICIAN Nurse Practitioner Adult Health
DX: R10.9 Unspecified abdominal pain (principal); E87.1 Hypo-osmolality and hyponatremia; K59.00 Constipation, unspecified; E06.3 Autoimmune thyroiditis; Z87.891 Personal history of nicotine dependence; Z90.710 Acquired absence of both cervix and uterus
CPT/HCPCS: 99284; 74177; 80053; 81003; 81015; 85025; 87086; Q9967

== ENCOUNTER 2024-11-05 12:06 | Emergency (ER) | payer MEDICARE, OTHER, SELFPAY ==
[2024-11-05 12:07] VITALS: BP 166/89
[2024-11-05 12:23] LABS: Hematocrit 35.6 % (37.0-47.0); Hemoglobin 11.5 g/dL (12.0-16.0); Mean Corp Hgb Conc. 32.3 g/dL (33.0-37.0); Mean Corpuscular Volume 88.6 fL (81.0-99.0); Nucleated Red Blood Cells % 0 %; Platelet Count 317 10^3/uL (130-400); Red Cell Dist. Width 13.6 % (11.5-14.5)
[2024-11-05 12:34] LABS: ALT (SGPT) 15 U/L (0-35); AST (SGOT) 24 U/L (14-36); Albumin 4.4 g/dl (3.5-5.0); Alkaline Phosphatase 61 U/L (38-126); Blood Urea Nitrogen 16 mg/dl (7-17); Calcium 9.4 mg/dl (8.4-10.2); Carbon Dioxide 29 mmol/L (22-30); Chloride 88 mmol/L (98-107); Glucose 103 mg/dl (70-99); Potassium 4.8 mmol/L (3.5-5.1); Sodium 124 mmol/L (135-145); Total Protein 7.5 g/dl (6.3-8.2); eGFR > 60.00
[2024-11-05 13:36] VITALS: BMI 15.7
[2024-11-05 13:52] VITALS: BP 186/97
[2024-11-05 13:53] VITALS: BP 186/97
[2024-11-05 14:00] VITALS: BP 153/66
--- NOTE | 2024-11-05 14:45 | ED.GENMED ---
History of Present Illness
General
Chief Complaint: Abnormal Lab Value
Source: patient
Time Seen by Provider: 11/05/24 13:44
History of Present Illness
History of Present Illness:
Patient presents to the emergency room for evaluation of a low sodium level. Patient had blood work performed by Dr. Doyle as an outpatient. It was found that her sodium was 122. She has a known history of hyponatremia. Typically her sodium
runs around 128. She had been on a fluid restriction of 40 ounces and salt tablets twice a day. She stopped taking the salt tablets because it made the dry mouth the tongue from her Sjogren's much worse and intolerable. Her fluid restriction is
difficult to maintain because she has to sip a lot of liquids to keep her mouth moist. Patient has been feeling unwell over the past few weeks which she attributes to her thyroid levels. The same outpatient labs show that she had a elevated TSH of
10 and a elevated T4 of 1.9. Dr. Doyle's been adjust her medications. She feels a bit unsteady at times.
Past History
Past History
ED Past Medical History: HTN, Hypercholesterolemia, [place] (Denies), Hypothyroidism and Other (Ulcer, PNA, Jose Manuel's thyroiditis, Anemia, Bronchiectasis , T3 resistent)
ED Past Surgical History: Gynecological (Hysterectomy), Orthopedic (Left knee tissue overgrowth, Left wrist surgery) and Tonsilectomy
Social History
Tobacco: Former smoker
Alcohol: None
Personal:
Living: alone
Family History
Family History: Negative Diabetes, Hypertension or CAD
Phy Exam
Physical Exam
Physical Exam:
General: Awake, Alert, Oriented X3. No acute distress.
Vitals: unremarkable
Head: Atraumatic
Eyes: Pupils equal, EOMI
Throat: Airway intact, no exudates
Neck: Trachea midline
Lungs: Clear and equal b/l
Heart: Regular rate, no murmurs
Abd: Soft, Nontender, No pulsatile mass
Neuro: Nonfocal
Skin: Warm, dry, no rash
Extremities: pulses equal b/l, no edema
Course
Orders/Labs/Results
Orders:
Orders
11/05/24 12:13
Complete Blood Count/With Diff Urgent
Comprehensive Metabolic Panel Urgent
11/05/24 14:47
Sodium Chloride 1 gram PO NOW STA
Abnormal Lab Results
11/05/24
12:13
RBC 4.02 L 10^6/uL
(4.20-5.40)
Hgb 11.5 L g/dL
(12.0-16.0)
Hct 35.6 L %
(37.0-47.0)
MCHC 32.3 L g/dL
(33.0-37.0)
Abs Immat Gran (auto) 0.1 H 10^3/uL
(0-0.05)
Absolute Neuts (auto) 8.3 H 10^3/uL
(1.4-6.5)
Absolute Monos (auto) 0.7 H 10^3/uL
(0.1-0.6)
Immature Gran % 0.6 H %
(0-0.5)
Neutrophils % 78.1 H %
(42.2-75.2)
Lymphocytes % 13.9 L %
(20.5-51.1)
Sodium 124 L mmol/L
(135-145)
Chloride 88 L mmol/L
(98-107)
Glucose 103 H mg/dl
(70-99)
11/05/24 12:13
11/05/24 12:13
Vital Signs
Initial and Last Documented VS:
Initial Vital Signs
Temp Pulse Resp BP Pulse Ox
97.6 F 65 16 166/89 98
11/05/24 12:07 11/05/24 12:07 11/05/24 12:07 11/05/24 12:07 11/05/24 12:07
Last Documented Vital Signs
Temp Pulse Resp BP Pulse Ox
97.6 F 70 20 186/97 98
11/05/24 12:07 11/05/24 13:53 11/05/24 13:53 11/05/24 13:53 11/05/24 14:47
MDM/Problems Addressed
Differential Diagnosis Includes:
Hyponatremia, hypothyroidism, dehydration
MDM/Problems Addressed:
Patient presents with low sodium that is essentially chronic. She has been following her prescribed outpatient regime due to some side effects. In discussion with Dr. Mullen he is on-call for nephrology he feels really the patient's best option is to
just get back on her treatment plan. Discussed with the patient perhaps going to just 1 sodium tablet a day instead of taking it twice a day but fully maintaining her fluid restriction by measuring 40 ounces into a single vessel and consuming just
that a day. She is happy with this plan. Patient will be discharged and recommend she have outpatient labs performed Fridayor Friday to recheck the sodium.
*Pulse Oximetry
SaO2: 98
Oxygen Mode of Delivery: Room air
Patient hypoxic: no
*Critical Care Note
Total Time (30-74mins, 75-104mins- exclusive of procedures): Not Applicable
ED Attending Note
-
Portions of this chart may have been created with voice recognition software.� Occasional wrong word or��sound alike� substitutions may have occurred due to the inherent limitations of voice recognition software.
Discharge Plan
Departure
Patient Disposition: Home (Routine Discharge)
Date of Disposition: 11/05/24
Time of Disposition: 14:45
Patient with high blood pressure during this ER visit?: Yes
Condition: Good
Discharge Problem:
Chronic hyponatremia
Instructions: Hyponatremia, BLOOD PRESSURE
Prescriptions:
No Action
levothyroxine 100 MCG tablet
100 mcg PO DAILY
liothyronine 5 mcg Tablet
5 mcg PO DAILY
metoprolol succinate 50 mg Tablet Extended Release 24 Hr
50 mg PO BID
acetaminophen [Tylenol Extra Strength] 500 mg Tablet
1,000 mg PO DAILYPRN PRN (Reason: mild pain)
Systane (PF) 0.4-0.3 % Dropperette
1 drp BOTH EYES DAILYPRN PRN (Reason: dry eyes)
Pepcid Complete 10-800-165 mg Tablet,Chewable
1 tab PO HS
cholecalciferol (vitamin D3) 25 mcg (1,000 unit) Tablet
25 mcg PO DAILY
polyethylene glycol 3350 [Miralax] 17 gram Powder In Packet
17 g PO Q72H
docusate sodium [Colace] 100 mg Capsule
100 mg PO BID
Activity Restrictions/Additional Instructions:
Your sodium level is chronically low. Today's result is somewhat lower than your average at 124 but not terribly. I discussed this with Dr. Mullen who is on-call for nephrology. He emphasizes the need to get back on sodium tablets. If 2 tablets a
day were too much for you then lets try at least once a day and maintain your fluid restriction of 40 ounces. Have your sodium level rechecked on Friday or Friday.
Interventions
Interventions:
*Risk Screen - Suicide Last Done: 11/05/24 12:07
*General Assessment Last Done: 11/05/24 13:36
*Neglect/Abuse Screening Last Done: 11/05/24 12:07
*ED- Fall Risk Assessment Last Done: 11/05/24 13:36
*ED COVID-19 Vaccine History Last Done: 11/05/24 13:36
Discharge Date and Time
Print Language: HEBREW
[2024-11-05 15:00] VITALS: BP 144/72
[2024-11-05] MEDS: SODIUM CHLORIDE 1 GRAM PO (15:13)
== END 2024-11-05 15:29 | disposition home or self-care (01) ==
LOC: EMR 12:06
PROVIDERS: Student in an Organized Health Care Education/Training Program; EMERGENCY PHYSICIAN Emergency Medicine; FAMILY PHYSICIAN Nurse Practitioner Adult Health
DX: E87.1 Hypo-osmolality and hyponatremia (principal); I10 Essential (primary) hypertension; E78.00 Pure hypercholesterolemia, unspecified; J47.9 Bronchiectasis, uncomplicated; E06.3 Autoimmune thyroiditis; M35.00 Sjogren syndrome, unspecified; T50.906A Underdosing of unspecified drugs, medicaments and biological substances, initial encounter; Z91.128 Patient's intentional underdosing of medication regimen for other reason; Z87.891 Personal history of nicotine dependence
CPT/HCPCS: 99283; 80053; 85025